=== PATIENT | female | born 1950 | race Caucasian/White ===

== ENCOUNTER → 2016-07-07 | Outpatient (CLI) | payer MEDICARE ==
[~2016-07-07] MED LIST: AMBIEN 10MG TAB10 MG PO; BYSTOLIC PO; BYSTOLIC10 MG PO; CARTIA XT240 MG PO; CARVEDILOL3.125 MG PO; DILTIAZEM 180180 MG OR; FLONASE 50 MCG16 GM; GABAPENTIN100 M1 PO; HUMALOG KW100 UNIT/1 SQ; HUMALOG MIX 75/10 ML SC; HUMALOG100 U/ML SC; IPRATROPIUM BROM3 M2 IH; LASIX 40MG. TAB40 MG PO; LASIX40 MG PO; LEVOTHYROXINE0.05 MG NG; LIPITOR40 MG PO; LISINOPRIL 20MG20 MG PO; LOMOTIL 0.025 M1 TAB PO; NEXIUM40 MG PO; NICOTINE PATCH;21 MG TD; NORCO 325 MG-101 TAB PO; OXYGEN3 IH; PHENERGAN 25MG.25 M1 PO; POTASSIUM CHLO20 ME2 PO; PRAVASTATIN 20M20 MG PO; PREDNISONE 20MG20 MG PO; PROVENTIL0.09 MG/A1 IH; SYMBICORT1 AE1 IH; SYMBICORT1 AER IH; SYNTHROID0.025 MG PO; TOUJEO300 U/ML SC; VICOPROFEN 7.51 TAB PO; XANAX 1MG TABLET1 MG PO; ZOFRAN ODT8 MG PO; ZOLPIDEM 10MG T10 MG PO
[2016-07-07 14:01] LABS: BUN 17 mg/dL (7-18)
[2016-07-07 14:03] LABS: HEMOGLOBIN 10.5 g/dL (12.2-16.2); LYMPH # 1.1 K/mm3 (0.7-4.5); LYMPH % 14.1 % (10-50.0)
[2016-07-07 14:04] LABS: GFR (ESTIMATED) 72 ML/MIN (59-)
== END ==
LOC: CARL-LAB 10:59
PROVIDERS: Internal Medicine Adolescent Medicine
DX: I50.30 Unspecified diastolic (congestive) heart failure (principal); E78.5 Hyperlipidemia, unspecified

== ENCOUNTER 2017-03-14 15:35 | Inpatient (IN) | payer MEDICARE, MEDICAID ==
[~2017-03-14] VITALS: Ht 165.1 cm; Wt 101.0 kg
[2017-03-14 15:35] VITALS: BP 161/80
[~2017-03-14 15:35] MED LIST changes: +ALDACTONE 25MG25 MG PO; +BREO ELLIPTA1 POW IH; +COMPAZINE10 M1 PO; +FOLIC ACID 1MG T1 MG PO; +GABAPENTIN800 MG PO; +METHOTREXATE 22.5 MG PO; +SPIRIVA HA1 PUFF/INH IH; -SYMBICORT1 AE1 IH
--- NOTE | 2017-03-14 15:44 | Emergency Room Report ---
History of Present Illness Time Seen by [id number] Presenting Problem in Triage Pt arrived: Presenting Problem: Onset of symptoms date/time:/ or onset unknown for: Treatment Prior to Arrival: COMMISSIONING ENGINEER Provided by: Sepsis Risk Assessment: Temp: B/P: MAP: Pulse: Resp: Recent fever? Clinical Suspician of Infection? Mental Status: Sepsis Risk: Have you (or family members/close friends) recently traveled outside the [place]? If Yes, where/when: Have you had exposure to infectious disease within the past month? TB? Other? Specify: Patient states that she had an episode of intense SOB this afternoon. She was given a duoneb on arrival and feels better. She has chronically edematous legs. Hx COPD, hospice patient, hx CHF as well. Hospice called ED and stated they had given her Lasix COMMISSIONING ENGINEER. Hospice tech was concerned about facial droop, but patient states she has had this for the last six months and denies any acute neurological changes today. She is DNR. She is alert and cooperative on arrival. 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 Daughter confirms that the patient has had some facial droop in the past. ALLERGIES Coded Allergies: Penicillins (Intermediate, SWELLING, HIVES, ITCHING 07/25/16) ibuprofen (Mild, ITCHING, SWELLING, RASH 07/25/16) Home Medications Active Scripts Furosemide (Lasix 40MG) 40 MG PO BIDL #60 TAB Ref 1 Prov: 10/05/16 Reported Medications Gabapentin (Gabapentin 800MG) 800 MG PO BID Esomeprazole Magnesium (Nexium 40MG Cap) 40 MG PO DAILY #30 CAP DILTIAZEM HCL (Cartia Xt) 240 MG PO BID Fluticasone Propionate (Flonase 50 Mcg Nasal [place]) 2 SPRAY NA BID Atorvastatin Calcium (Atorvastatin) 40 MG PO DAILY Tiotropium [place] (Spiriva) 1 PUFF IH DAILY Insulin Lispro (Humalog Kwikpen) 30 UNIT SQ TID INSULIN GLARGINE,HUM.REC.ANLOG (Toujeo Solostar) 100 UNITS SC DAILY POTASSIUM CHL (Potassium Chloride) 20 MEQ PO BIDP PRN SUPPLEMENT Methotrexate 2.5 MG PO WEEKLY FOLIC ACID (Folic Acid) 1 MG PO DAILY Spironolactone (Aldactone) 25 MG PO DAILY Prochlorperazine Maleate (Compazine) 10 MG PO PRN PRN NAUSEA FLUTICASONE/VILANTEROL (Breo Ellipta 100-25 Mcg INH) 1 PUFF IH DAILY Levothyroxine Sodium (Synthroid 0.025MG) 0.025 MG PO DAILY Alprazolam (Xanax 1MG) 1 MG PO BID ALBUTEROL (Proventil Hfa Inhaler) 2 PUFF IH Q4H Device (Oxygen Concentrator (Portable)) 1 UNIT IH CONSTANT #1 IPRATROPIUM/ALBUTEROL SULFATE (Iprat-Albut 0.5-3(2.5) MG/3 Ml) 3 ML IH QID History Medical History General CAD? No Angina: No GA: No Hypertension? Yes Hyperlipidemia? Yes CHF? Yes DVT? No PE? No COPD? Yes Asthma? Yes Anemia? No GERD? Yes Gastric ulcers? No GI Bleed? No Hernia? No Thyroid Problems? No Hypothyroidism? No CVA? No Seizures? No Diabetes? Yes Insulin Dependent: Yes Insulin Pump: No Home FSBS? Yes Renal Insuffiency? No End Stage Renal Disease? No UTI? No Stones? No BPH? No GB Disease: Yes Nephritic Syndrome? No Asplenia? No Hepatitis? No Sickle Cell Disease? No Arthritis? Yes Migraines? No Cataracts? No Glaucoma? No MRSA? No HIV? No TB? No Anxiety? Yes Depression? No Cancer? Yes Site: CERVICAL More? 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 Immunization Hx DT/Tetanus Unknown Flu Refused Pneumonia Received In Past Surgical Hx Previous Surgery?Y HYSTERECTOMY Cholecystectomy GB REMOVAL Family History Family Hx Diabetes Yes CAD No Hypertension Yes Hyperlipidemia Yes Cancer Yes TB No Social History Smoking Hx Packs/day N/A Alcohol Alcohol: No Review of Systems All Other Systems Reviewed and Negative Respiratory see HPI (oxygen dependent, on Hospice) Psychiatric/Neurological denies see HPI Physical Exam Vital Signs Vital Signs Date Time Temp Pulse Resp B/P Pulse O2 O2 Flow FiO2 Ox Delivery Rate 03/14 1839 95 OXYGEN 03/14 183 98.3 101 20 167/83 95 OXYGEN 03/14 1811 99.1 100 24 161/76 92 4 03/14 1805 99.1 100 24 161/7 92 4 03/14 1756 96 24 157/75 94 15 03/14 1710 40 03/14 1704 94 20 158/78 92 5 03/14 1628 106 20 138/67 94 4 03/14 1535 98.0 107 20 161/80 100 4 General Appearance normal appearance, WD/WN, no apparent distress Eye Exam - bilateral eye normal exam, bilateral eye PERRL Neck normal inspection, non-tender, supple, full range of motion Respiratory Status Yes: trachea midline, chest symmetrical, non tender chest, non productive cough. No: respiratory distress, tender on palpation, use of accessory muscles, pain on inspiration, pain on expiration, productive cough. Lung Sounds bilateral: decreased breath sounds. Cardiovascular normal exam, regular rate/rhythm, no gallop, no JVD, no murmur, no rub, normal peripheral pulses (nonpitting edema BLE neg [place]) Peripheral Pulses Pulses normal Yes Gastrointestinal normal bowel sounds, normal exam, non tender, soft, no organomegaly, no pulsatile mass, no guarding, no rebound Extremities normal range of motion, no calf tenderness, pedal edema Strength 4 Upper Ext (L), 4 Upper Ext (R), 4 Lower Ext (L), 4 Lower Ext (R) Neurologic alert, normal exam, no motor/sensory deficits, oriented x 3 (minor facial droop right) Glascow Coma Scale Glascow Coma Scale Response Value EYE response: 4 Spontaneously 4 MOTOR response: 6 OBEYS 6 VERBAL response: 5 Oriented & Converses 5 Total 15 Skin intact, normal color, warm/dry, pallor Medical Decision Making LABS/Meds/Orders Pt receiving controlled substance in ED? No Results/Orders Laboratory Tests 03/14/17 1700: Urine Color YELLOW, Urine Appearance CLEAR, Urine pH 6.0, Ur Specific [place] 1.025, Urine Protein 2+ H, Urine Ketones NEGATIVE, Urine Blood TRACE-LYSED, Urine Nitrate NEGATIVE, Urine Bilirubin NEGATIVE, Urine Urobilinogen 0.2, Ur Leukocyte Esterase NEGATIVE, Urine RBC NONE, Urine WBC OCC, Ur Squamous Epith Cells OCC, Urine Bacteria NONE, Hyaline Casts 5-10, Urine Glucose NEGATIVE 03/14/17 1645: ABG pH 7.29 L, ABG pCO2 (Temp Corrct 83.6 H, ABG pO2 (Temp Correct 75.5 L, ABG HCO3 39.6 H, ABG Total CO2 42.1 H, ABG O2 Sat (Calculated) 93.5, ABG Base Excess 13.0 H, Junior Test ACCEPTABLE, Blood Gas Comments LEFT RADIAL 03/14/17 1615: Sodium 141, Potassium 3.9, Chloride 97 L, Carbon Dioxide 43 *H, BUN 7, Creatinine 0.9, Estimated Creat Clear 97, Estimated GFR (MDRD) 63, Glucose 194 H, Calcium 8.8, Total Bilirubin 0.3, AST 24, ALT 22, Alkaline Phosphatase 80, Troponin I 0.04, Total Protein 7.3, Albumin 3.2 L, Globulin 4.1 H, Albumin/ Globulin Ratio 0.8 L, WBC 6.3, RBC 3.39 L, Hgb 8.8 L, Hct 29.6 L, MCV 87.5, RDW 17.8 H, Plt Count 229, MPV 7.6, Gran % 79.3, Gran # 5.0, Lymphocytes % 14.3 , Monocytes % 3.7, Eosinophils % 2.4, Basophils % 0.3, Lymphocytes # 0.9, Monocytes # 0.2, Eosinophils # 0.2, Basophils # 0.0, PUBS MCHC 29.7 L, MCH 26.0 L Current Medication Orders Sig/Ghazal Start time Last Medication Dose Route Stop Time Status Admin Methotrexate 2.5 MG WEEKLY 03/21 900 UNVr PO Enoxaparin Sodium 40 MG DAILY 03/15 900 UNV SC Levothyroxine Sodium 0.025 MG DAILY 03/15 900 UNV PO Spironolactone 25 MG DAILY 03/15 900 UNV PO Tiotropium [place] 18 MCG DAILY 03/15 900 UNV IH Furosemide 40 MG BIDL 03/15 700 UNV PO Albuterol/Ipratropium 3 ML QID 03/14 2100 UNV 03/14 INH 1937 Alprazolam 1 MG BID 03/14 2100 UNV PO Diagnostic Test (Pha) 1 EACH W/MEALS&HS 03/14 2100 UNV FS 05/13 2058 Diltiazem HCl 240 MG BID 03/14 2100 UNV PO Fluticasone 2 SPR BID 03/14 2100 UNV Propionate NA Insulin Human [rDNA See Dose W/MEALS&HS 03/14 2100 UNV origin] Insts (1) SC Methylprednisolone 125 MG Q12 03/14 2100 UNV Sodium Succinate IV Ondansetron HCl 4 MG Q6HP PRN 03/14 1800 UNV IV Potassium Chloride 20 MEQ BIDP PRN 03/14 1800 UNV PO Prochlorperazine 10 MG PRN PRN 03/14 1800 UNV Maleate PO Sodium Chloride 10 ML PRN PRN 03/14 1800 UNV IV Furosemide 40 MG ONCE ONE 03/14 1700 DC 03/14 IV 03/14 1701 1702 Albuterol/Ipratropium 3 ML ONCE ONE 03/14 1545 DC 03/14 INH 03/14 1546 1540 Methylprednisolone 125 MG ONCE ONE 03/14 1545 DC 03/14 Sodium Succinate IV 03/14 1546 1632 Sodium Chloride 10 ML PRN PRN 03/14 1545 AC IV 03/15 1541 Methylprednisolone 0 .STK-MED ONE 03/14 1544 DC Sodium Succinate .ROUTE Dose Instructions: (1)Insulin Human [rDNA origin]: SEE ADMIN CRITERIA FOR LOW INTENSITY SS Orders Procedure Date/time Status DIET-2000 CALORIE ADA 03/15 B Active CBC WITH AUTO DIFF 03/15 06 Active BASIC METABOLIC PROFILE 03/15 06 Active DIET-NOTHING BY MOUTH 03/14 D Complete ADMITTED PT IS ACTUALLY IN BED 03/14 1837 Active RT BIPAP, Initial Setup/Change 03/14 1745 Active RT BIPAP, Monitor/Maintain 03/14 1745 Active URINARY CATHETER INSERT 03/14 1729 Active URINALYSIS/COMPLETE 03/14 1729 Complete Decision to admit 03/14 1708 Active RESP THERAPY REQUEST (GENERAL) 03/14 1652 Active 12 LEAD EKG-BESSON (INITIAL) 03/14 1543 Active ELECTROCARDIOGRAM REQUEST 03/14 1543 Active RT REQUEST DUONEB 03/14 1543 Active ARTERIAL BLOOD GAS REQUEST 03/14 1543 Active IV SALINE LOCK 03/14 1543 Active CULTURE, BLOOD 03/14 1543 Active TROPONIN I 03/14 1543 Complete CBC WITH AUTO DIFF 03/14 1543 Complete CHEM 12 PROFILE 03/[address] HEAD REQ 03/14 1539 Complete ADMIT PATIENT 03/14 UNK Active RESP THERAPY REQUEST (GENERAL) 03/14 UNK Active PULSE OXIMETRY REQUEST 03/14 UNK Active RT REQUEST FOR SPIRIVA INH 03/14 UNK Active RT REQUEST DUONEB 03/14 UNK Active ARTERIAL BLOOD GAS REQUEST 03/14 UNK Active VITAL SIGNS 03/14 UNK Active IV SALINE LOCK 03/14 UNK Active RECORD I & O 03/14 UNK Active CODE STATUS 03/14 UNK Active PATIENT ACTIVITY ORDER 03/14 UNK Active CM/EKG CM/EKG EKG rate, NSR, rhythm, no evid. of ischemic chgs, no ectopy, normal QRS, normal TN, normal EKG (Stach 105) XRAY/CT/US XRAY/CT/US XRAY chest XR interpretation by reviewed by me Xray Results abnormal, mild cephalization; poorly penetrated, but seems to have a left sided effusion/blunting CT head CT interpretation by reviewed by me (report reviewed) Time results known: 1625 CT Results normal/NAD Consult MD Physician Consult Consult/PCP d/w PCP Dr. Maki: antibiotics not indicated; admit on BiPap Time Called 1708 Reason Admission Progress ED Progress Notes Date 03/14/17 Time 1708 Comment Patient given Lasix, Solumedrol, placed on Bipap for increasing somnolence with elevated PC02 noted; PCP paged for admission. Departure Departure Time of Disposition 1719 Disposition Still a Patient Clinical Impression Primary Impression: Respiratory distress Condition STABLE ED Critical Care Critical Care Yes (resp distress) Time spent < 30 min Vital system(s) involved: resp distress I was present at bedside for Coordinating pt's care, During my initial exam, Reviewing lab results, Reviewing old records, Discussing pt condition, For re- examinations, Examining radiographs at 2003
--- OUTSIDE RECORDS SUMMARY | 2017-03-14 16:07 | External Medical Summary Rpt ---
Author Author [facility] Organization [facility] Address Unknown Phone Unavailable Care Team Providers Care Wage Analyst Name Role Phone PHY, UNKNOWN PCP Unavailable Encounter [facility] [id number] Date(s): 03/06/16 - 03/06/17 [facility] [address] [place] [address]- [phone] Discharge Disposition: OP Self Care or Home Attending Physician: MICKEY DAVIES II, MD-ANS Admitting Physician: MICKEY DAVIES II, MD-ANS Referring Physician: MICKEY DAVIES II, MD-ANS Reason for Visit PM Vital Signs No data available for this section Problem List No data available for this section Allergies, Adverse Reactions, Alerts No data available for this section Medications No data available for this section Results No data available for this section Immunizations No data available for this section Procedures No data available for this section Social History No data available for this section Assessment and Plan No data available for this section Hospital Discharge Instructions No data available for this section
--- OUTSIDE RECORDS SUMMARY | 2017-03-14 16:07 | External Medical Summary Rpt ---
Author Author [facility] Organization [facility] Address Unknown Phone Unavailable Care Team Providers Care Digital Operations Analyst Name Role Phone PHY, UNKNOWN PCP Unavailable Encounter [facility] [id number] Date(s): 03/06/16 - 03/06/17 [facility] [address] [place] [address]- Discharge Disposition: OP Self Care or Home [...]
--- NOTE | 2017-03-14 16:11 | RADIOLOGY REPORT PS360 ---
CT HEAD W/O CONTRAST HISTORY: RT SIDE FACIAL DROOP ORDERING PHYSICIAN: Yohana Hand MD PATIENT AGE: 66 years COMPARISON: 10/02/2016 TECHNIQUE: Helical images obtained due to patient's inability to remain still without contrast. Brain and bone windows reviewed. FINDINGS: No midline shift, mass effect, intracranial hemorrhage, hydrocephalus, or extra-axial fluid collection is evident. The calvarium has an unremarkable appearance. Mastoid sinuses are opacified bilaterally. The visualized paranasal sinuses are unremarkable. IMPRESSION: 1. No acute intracranial findings. 2. Bilateral mastoid sinus opacification. 3. There is no evidence of intracranial hemorrhage, focal mass, or acute territorial infarction. A negative CT does not exclude an acute CVA. A follow-up head CT or MRI is recommended if neurological symptoms persist .
--- OUTSIDE RECORDS SUMMARY | 2017-03-14 16:11 | External Medical Summary Rpt | CCD ---
Author Author , RAE MCBRIDE Address Unknown Phone Care Team Providers Care Test Case Developer Name Role Phone CHRIS BARTH, Unavailable Unavailable Conner Healy Unavailable Unavailable Adielmtcassandra [facility] Purpose Continuity of Care Document - 12-07-2011 through 2016 Problems Code Diagnosis DOS Provider Status 90391287 Active [facility] 562.01 Diverticuli [facility] [id number] Chronic [facility] E87.2 ACIDOSIS M54.5 LOW BACK PAIN N17.9 ACUTE KIDNEY FAILURE, UNSPECIFIED R06.89 OTHER ABNORMALITI ES OF BREATHING R41.82 ALTERED MENTAL STATUS, UNSPECIFIED R47.81 SLURRED SPEECH Allergies, Adverse Reactions, Alerts Type Drug Allergy Adverse Reaction to Substance Substance Reaction Severity Penicillin SWELLING, HIVES, Intermediate ITCHING Naproxen ITCHING, HIVES Mild Medications Na ND Rx Da Fi Fi Am Da Di Ph RX Ph St me C No te ll ll ou ys ag ar # ys at rm s nt no ma ic us Or Da si cy ia de te s n re d CA 51 01 0 No RV 07 -3 ED 90 0- Lo IL 93 20 ng OL 12 13 er 0 12 Ac .5 ti ve MG TA BL ET MO 65 01 1 No 64 -2 WV 90 9- Lo EP 20 20 ng 17 13 er PO 5 WD Ac ER ti ve PA CK ET WV 00 01 2 No OT 00 -2 ON 80 9- Lo IX 84 20 ng [address] 9 Ac 40 ti ve MG TA BL ET FU 00 01 0 No RO 40 -2 SE 96 8- Lo SD 10 20 ng DE 20 13 er 4 40 Ac ti MG ve /4 ML AL WV 00 01 0 No OT 00 -2 ON 80 8- Lo IX 84 20 ng [address] 9 Ac 40 ti ve MG TA BL ET 63 01 5 No PI 73 -2 RI 90 6- Lo N 43 20 ng 81 40 13 er 1 MG Ac ti CH ve EW AB LE TA BL ET Me 00 01 0 No th 00 -2 yl 90 6- Lo pr 19 20 ng ed 00 13 er ni 9 so Ac lo ti ne ve So d Matta cc in a Me 00 01 5 No th 00 -2 yl 90 6- Lo pr 19 20 ng ed 00 13 er ni 9 so Ac lo ti ne ve So d Matta cc in a IN 00 01 5 No VA 00 -2 NZ 63 6- Lo 1 84 20 ng 57 13 er GM 1 Ac AD ti D- ve VA NT AG E AL So 00 01 5 No d 07 -2 Ch 47 6- Lo lo 10 20 ng ri 11 13 er de 3 Ac 0. ti 9% ve 50 ML Ad v SO 00 01 6 No DI 40 -2 UM 97 5- Lo 98 20 ng CH 30 13 er LO 9 RI Ac DE ti ve 0. 9% SO SEGUNDO TI ON Ni 00 01 6 No co 06 -2 ti 70 5- Lo ne 21 20 ng 40 13 er 14 7 MG Ac /2 ti 4H ve R Pa tc h LO 00 01 6 No VE 07 -2 NO 50 5- Lo X 62 20 ng 40 04 13 er 1 MG Ac /0 ti .4 ve ML SY RI NG E MA 00 01 6 No PA 90 -2 P 41 5- Lo 32 98 20 ng 5 26 13 er MG 1 Ac TA ti BL ve ET MO 00 01 6 No RP 64 -2 HI 16 5- Lo NE 07 20 ng 02 13 er IN 5A J Ac 2M ti G/ ve 0. 2M L WV 00 01 6 No OM 64 -2 ET 11 5- Lo TURNER 49 20 ng ZI 53 13 er NE 5 Ac 25 ti ve MG /M L AM PU L CA 51 01 6 No RV 07 -2 ED 90 5- Lo IL 93 20 ng OL 12 13 er 0 12 Ac .5 ti ve MG TA BL ET Is 58 01 6 No os 17 -2 or 70 5- Lo bi 22 20 ng de 21 13 er 1 Mo Ac no ti ni ve tr at e 30 MG Ta Al 68 01 6 No pr 08 -2 az 40 5- Lo ol 02 20 ng am 00 13 er 1 1M Ac G ti Ta ve bl et ZO 51 01 6 No LP 07 -2 ID 90 5- Lo EM 72 20 ng 52 13 er TA 0 RT Ac RA ti TE ve 10 MG TA BL ET IP 00 01 6 No RA 48 -2 T- 70 5- Lo AL 20 20 ng BU 10 13 er T 1 0. Ac 5- ti 3( ve 2. 5) MG /3 ML FS 01 6 No -2 BL 5- Lo OO 20 ng D 13 er MATTA GA Ac R ti ve HU 00 01 6 No MA 00 -2 LO 27 5- Lo G 51 20 ng 10 01 13 er 0 7 UN Ac IT ti S/ ve ML AL RA 63 01 0 No D- 80 -2 SA 70 5- Lo LI 10 20 ng NE 07 13 er 5A FL Ac US ti H ve 10 ML SY RI NG E ON 00 01 6 No DA 64 -2 NS 16 5- Lo ET 08 20 ng RO 02 13 er N 5 HC Ac L ti 4 ve MG /2 ML AL Vital Signs 05-23-2012 10:00 Name Value Interpretat Reference Comment ion Range Body 98.4 [degF] Temperature BP 72 mm[Hg] Diastolic BP Systolic 158 mm[Hg] Heart 70 /min Rate/Pulse Respiratory 16 /min Rate 05-23-2012 08:00 Name Value Interpretat Reference Comment ion Range O2% 94 % 05-22-2012 08:48 Name Value Interpretat Reference Comment ion Range Weight 91.372 kg Measured 05-17-2012 12:00 Name Value Interpretat Reference Comment ion Range O2% 94 % Respiratory 20 /min Rate 05-17-2012 11:41 Name Value Interpretat Reference Comment ion Range Body 97.6 [degF] Temperature BP 86 mm[Hg] Diastolic BP Systolic 137 mm[Hg] Heart 93 /min Rate/Pulse Height 154.94 cm Weight 199 [lb_av] Measured Results Labs Lab Lab Date Result Refere Interp Status Commen Order Detail nces retati t Range on Differential panel, method unspecified - (10-05-2016 06:00) Hypochr 1+ complet omia 017 ed [Presen 06:00 ce] in Blood LYMPH 4 % 10% - Low complet 017 50% ed 06:00 Platele NORMAL complet ts 017 ed [Presen 06:00 ce] in Blood by Light microsc opy Urinalysis dipstick W Reflex Microscopic panel in Urine (10-02-2016 18:00) Amorpho 1+ NONE complet us 017 ed sedimen 18:00 t [Presen ce] in Urine sedimen t by Light microsc opy Bacteri TRACE O complet a 017 ed [Presen 18:00 ce] in Urine sedimen t by Light microsc opy Erythro OCC 0 complet cytes 017 ed [Presen 18:00 ce] in Urine sedimen t by Light microsc opy Epithel 3-5 0#/hp complet ial 017 f - ed cells.s 18:00 5#/hp quamous f [Presen ce] in Urine sedimen t by Microsc opy high power field Urinalysis dipstick W Reflex Microscopic panel in Urine (10-02-2016 18:00) Appeara CLEAR CLEAR complet nce of 017 ed Urine 18:00 Bilirub NEGATIV NEG complet in 017 E ed [Presen 18:00 ce] in Urine by Test strip Erythro TRACE-L NEG complet cytes 017 YSED ed [Presen 18:00 ce] in Urine Color YELLOW YELLOW complet of 017 ed Urine 18:00 Ketones NEGATIV NEG complet 017 E ed [Presen 18:00 ce] in Urine by Automat ed test strip Mucus NEGATIV NEG complet [Presen 017 E ed ce] in 18:00 Urine sedimen t by Light microsc opy Nitrite NEGATIV NEG complet 017 E ed [Presen 18:00 ce] in Urine by Test strip Urobili 0.2 NEG complet nogen 017 ed [Presen 18:00 ce] in Urine by Test strip Gas panel in Arterial blood (10-02-2016 17:27) Arteria ACCEPTA complet l 017 BLE ed patency 17:27 Wrist artery --pre arteria l punctur e HLA-B27 [Presence] by Probe & target amplification method (09-08-2016 10:40) HLA-B27 Negativ . complet 017 e ed [Presen 10:40 ce] by Probe & target amplifi cation method Hemoglobin A1c in Blood (09-08-2016 10:40) Hemoglo 9.1 % 0.0% High complet bin A1c 017 - ed in 10:40 7.0% Blood Glucose BldC Glucomtr-mCnc (05-23-2012 06:43) Glucose 206 70-110 complet BldC 013 mg/dl ed Glucomt 06:43 r-mCnc Glucose BldC Glucomtr-mCnc (05-22-2012 20:30) Glucose 190 70-110 complet BldC 013 mg/dl ed Glucomt 20:30 r-mCnc Glucose BldC Glucomtr-[facility] (05-22-2012 16:32) Glucose 326 70-110 High complet BldC 013 mg/dl alert ed Glucomt 16:32 r-mCnc Glucose BldC [facility]comtr-[facility] (05-22-2012 11:43) Glucose 152 70-110 complet BldC 013 mg/dl ed Glucomt 11:43 r-mCnc Glucose BldC [facility]comtr-[facility] (05-22-2012 06:37) Glucose 143 70-110 complet BldC 013 mg/dl ed Glucomt 06:37 r-mCnc Glucose BldC [facility]comtr-[facility] (05-21-2012 20:28) Glucose 201 70-110 complet BldC 013 mg/dl ed Glucomt 20:28 r-mCnc Glucose BldC [facility]tr-[facility] (05-21-2012 16:53) Glucose 184 70-110 complet BldC 013 mg/dl ed Glucomt 16:53 r-mCnc C dif Tox A+B Stl Ql (05-21-2012 15:00) C dif NOT NOT complet Tox A+B 013 DETECTE DETECTE ed Stl Ql 15:00 D Glucose BldC [facility]comtr-[facility] (05-21-2012 11:46) Glucose 164 70-110 complet BldC 013 mg/dl ed Glucomt 11:46 r-mCnc Glucose BldC [facility]comtr-[facility] (05-21-2012 06:48) Glucose 01-29-2 178 70-110 complet BldC 013 mg/dl ed Glucomt 06:48 r-[facility] C dif Tox A+B Stl Ql (05-21-2012 00:15) C dif NOT NOT complet Tox A+B 013 DETECTE DETECTE ed Stl Ql 00:15 D Glucose BldC Glucomtr-mCnc (05-20-2012 21:21) Glucose 260 70-110 complet BldC 013 mg/dl ed Glucomt 21:21 r-[facility] Glucose BldC Glucomtr-[facility] (05-20-2012 17:01) Glucose 114 70-110 complet BldC 013 mg/dl ed Glucomt 17:01 r-[facility] C-REACTIVE PROTEIN (05-20-2012 13:30) C-REACT Less 0.0-0.9 complet AILIN 013 than ed PROTEIN 13:30 0.2 MG/DL IgA Ser-mCnc (05-20-2012 13:27) IgA 241 81-463 complet Ser-mCn 013 mg/dL ed c 13:27 tTG IgA Ser-aCnc (05-20-2012 13:14) tTG IgA Less () complet 013 than 1 ed Ser-aCn 13:14 U/mL c Glucose dC Glucomtr-[facility] (05-20-2012 12:01) Glucose 314 70-110 High complet BldC 013 mg/dl alert ed Glucomt 12:01 r-[facility] Glucose dC Glucomtr-[facility] (05-20-2012 06:39) Glucose 167 70-110 complet BldC 013 mg/dl ed Glucomt 06:39 r-[facility] COMPREHENSIVE METABOLIC PANEL (05-20-2012 06:20) Glucose 147 74-106 complet 013 mg/dL ed Bld-mCn 06:20 c BUN 33 7-18 complet Bld-mCn 013 mg/dL ed c 06:20 Creat 1.5 0.6-1.0 complet SerPl-m 013 mg/dL ed Cnc 06:20 ESTIMAT 57 50-200 complet ED 013 ML/MIN ed CREATIN 06:20 INE CLEARAN CE GFR 35 59- complet (ESTIMA 013 ML/MIN ed BRUCE) 06:20 Sodium 141 136-145 complet SerPl-s 013 mmoL/L ed Cnc 06:20 Potassi 3.4 3.5-5.1 complet um 013 mmoL/L ed SerPl-s 06:20 Cnc Chlorid 108 98-107 complet e 013 mmoL/L ed SerPl-s 06:20 Cnc CO2 25 21.0-32 complet SerPl-s 013 mmoL/L .0 ed Cnc 06:20 Calcium 7.7 8.5-10. complet 013 mg/dL 1 ed SerPl-m 06:20 Cnc Prot 6.3 6.4-8.2 complet SerPl-m 013 gm/dL ed Cnc 06:20 Albumin 3.0 3.4-5.0 complet 013 gm/dL ed SerPl-m 06:20 Cnc Globuli 3.3 1.3-3.2 complet n 013 gm/dL ed Ser-mCn 06:20 c Albumin 0.9 UNK 1.1-1.8 complet /Glob 013 ed SerPl-m 06:20 Rto Bilirub 0.3 0.2-1.0 complet 013 mg/dL ed SerPl-m 06:20 Cnc AST 19 U/L 15-37 complet SerPl-c 013 ed Cnc 06:20 ALT 37 U/L 30-65 complet SerPl-c 013 ed Cnc 06:20 ALP 72 U/L 50-136 complet SerPl-c 013 ed Cnc 06:20 Amylase SerPl-cCnc (05-20-2012 06:20) Amylase 48 U/L 25-115 complet 013 ed SerPl-c 06:20 Cnc LIPASE (05-20-2012 06:20) LIPASE 210 U/L 73-393 complet 013 ed 06:20 CBC with AUTO DIFF (05-20-2012 06:20) WBC # 05-20- 7.6 4.8-10. complet Bld 013 K/MM3 8 ed Auto 06:20 RBC # 05-20-2 4.28 4.2-5.4 complet Bld 013 M/mm3 ed Auto 06:20 Hgb 2 12.7 12.2-16 complet Bld-mCn 013 g/dL .2 ed c 06:20 Hct Fr 38.0 % 37.0-47 complet Bld 013 .0 ed 06:20 MCV RBC 88.8 fl 82.2-97 complet 013 .8 ed 06:20 MCH RBC 29.7 pg 27-31.2 complet Qn 013 ed Auto 06:20 MEAN 33.4 31.8-35 complet CORPUSC 013 g/dl .4 ed ULAR 06:20 HGB CONC RDW RBC 14.1 % 11.5-17 complet Auto 013 .5 ed 06:20 Platele 212 142-424 complet t Bld 013 K/mm3 ed Ql 06:20 Manual MEAN 8.6 fl 7.4-10. complet PLATELE 013 4 ed T 06:20 VOLUME Granulo 86.6 % 37.0-80 complet cytes 013 .0 ed Fr Bld 06:20 Auto LYMPH % 05-20-2 10.6 % 10-50.0 complet 013 ed 06:20 Monocyt 05-20-2 2.6 % 1.7-9.3 complet es Fr 013 ed Bld 06:20 Auto Eosinop 05-20-2 0.3 % 0.1-12. complet hil Fr 013 0 ed Bld 06:20 Auto Basophi 05-20-2 0.0 % 0.1-2.0 complet ls Fr 013 ed Bld 06:20 Auto Granulo 05-20-2 6.6 1.8-7.8 complet cytes # 013 K/mm3 ed Bld 06:20 Auto Lymphoc 05-20-2 0.8 0.7-4.5 complet ytes Fr 013 K/mm3 ed Bld 06:20 Auto Monocyt 05-20-2 0.2 0.1-1.0 complet es # 013 K/mm3 ed Bld 06:20 Auto Eosinop 05-20-2 0.0 0.0-0.4 complet hil # 013 K/mm3 ed Bld 06:20 Auto Basophi 0.0 0-0.2 complet ls # 013 K/MM3 ed Bld 06:20 Auto Glucose BldC Glucomtr-mCnc (05-19-2012 21:20) Glucose 187 70-110 complet BldC 013 mg/dl ed Glucomt 21:20 r-mCnc Glucose BldC Glucomtr-mCnc (05-19-2012 16:56) Glucose 255 70-110 complet BldC 013 mg/dl ed Glucomt 16:56 r-mCnc Glucose BldC Glucomtr-mCnc (05-19-2012 12:00) Glucose 156 70-110 complet BldC 013 mg/dl ed Glucomt 12:00 r-mCnc Glucose BldC Glucomtr-mCnc (05-19-2012 06:59) Glucose 154 70-110 complet BldC 013 mg/dl ed Glucomt 06:59 r-mCnc Glucose BldC Glucomtr-mCnc (05-18-2012 20:14) Glucose 175 70-110 complet BldC 013 mg/dl ed Glucomt 20:14 r-mCnc Glucose BldC Glucomtr-mCnc (05-18-2012 17:06) Glucose 149 70-110 complet BldC 013 mg/dl ed Glucomt 17:06 r-mCnc Glucose BldC Glucomtr-mCnc (05-18-2012 11:45) Glucose 159 70-110 complet BldC 013 mg/dl ed Glucomt 11:45 r-mCnc Glucose BldC Glucomtr-mCnc (05-18-2012 06:43) Glucose 116 70-110 complet BldC 013 mg/dl ed Glucomt 06:43 r-mCnc CBC with AUTO DIFF (05-18-2012 05:35) WBC # 9.6 4.8-10. complet Bld 013 K/MM3 8 ed Auto 05:35 RBC # 4.81 4.2-5.4 complet Bld 013 M/mm3 ed Auto 05:35 Hgb 14.4 12.2-16 complet Bld-mCn 013 g/dL .2 ed c 05:35 Hct Fr 43.1 % 37.0-47 complet Bld 013 .0 ed 05:35 MCV RBC 89.6 fl 82.2-97 complet 013 .8 ed 05:35 MCH RBC 29.8 pg 27-31.2 complet Qn 013 ed Auto 05:35 MEAN 33.3 31.8-35 complet CORPUSC 013 g/dl .4 ed ULAR 05:35 HGB CONC RDW RBC 14.4 % 11.5-17 complet Auto 013 .5 ed 05:35 Platele 261 142-424 complet t Bld 013 K/mm3 ed Ql 05:35 Manual MEAN 7.5 fl 7.4-10. complet PLATELE 013 4 ed T 05:35 VOLUME Granulo 65.4 % 37.0-80 complet cytes 013 .0 ed Fr Bld 05:35 Auto LYMPH % 05-18-2 28.3 % 10-50.0 complet 013 ed 05:35 Monocyt 05-18-2 5.0 % 1.7-9.3 complet es Fr 013 ed Bld 05:35 Auto Eosinop 05-18-2 0.8 % 0.1-12. complet hil Fr 013 0 ed Bld 05:35 Auto Basophi 05-18-2 0.5 % 0.1-2.0 complet ls Fr 013 ed Bld 05:35 Auto Granulo 05-18-2 6.3 1.8-7.8 complet cytes # 013 K/mm3 ed Bld 05:35 Auto Lymphoc 05-18-2 2.7 0.7-4.5 complet ytes Fr 013 K/mm3 ed Bld 05:35 Auto Monocyt --2 0.5 0.1-1.0 complet es # 013 K/mm3 ed Bld 05:35 Auto Eosinop 05-18-2 0.1 0.0-0.4 complet hil # 013 K/mm3 ed Bld 05:35 Auto Basophi 05-18-2 0.1 0-0.2 complet ls # 013 K/MM3 ed Bld 05:35 Auto BASIC METABOLIC PANEL (05-18-2012 05:30) Glucose 95 74-106 complet 013 mg/dL ed Bld-mCn 05:30 c BUN 52 7-18 complet Bld-mCn 013 mg/dL ed c 05:30 Creat 1.8 0.6-1.0 complet SerPl-m 013 mg/dL ed Cnc 05:30 ESTIMAT 47 50-200 complet ED 013 ML/MIN ed CREATIN 05:30 INE CLEARAN CE GFR 29 59- complet (ESTIMA 013 ML/MIN ed BRUCE) 05:30 Sodium 143 136-145 complet SerPl-s 013 mmoL/L ed Cnc 05:30 Potassi 3.7 3.5-5.1 complet um 013 mmoL/L ed SerPl-s 05:30 Cnc Chlorid 106 98-107 complet e 013 mmoL/L ed SerPl-s 05:30 Cnc CO2 27 21.0-32 complet SerPl-s 013 mmoL/L .0 ed Cnc 05:30 Calcium 8.0 8.5-10. complet 013 mg/dL 1 ed SerPl-m 05:30 [facility] Glucose [facility]com-[facility] (05-17-2012 20:33) Glucose 112 70-110 complet BldC 013 mg/dl ed [facility] 20:[facility] (05-17-2012 17:02) Glucose 120 70-110 complet BldC 013 mg/dl ed Glucomt 17:02 r-[facility] URINALYSIS/COMPLETE (05-17-2012 15:57) URINE YELLOW YELLOW complet COLOR 013 ed 15:57 URINE SL CLEAR complet APPEARA 013 CLOUDY ed NCE 15:57 URINE NEGATIV NEG complet GLUCOSE 013 E ed - 15:57 DIPSTIC K URINE 1+ NEG complet BILIRUB 013 ed IN - 15:57 DIPSTIC K URINE NEGATIV NEG complet KETONE 013 E mg/dL ed 15:57 URINE Greater 1.005-1 complet SPECIFI 013 than .030 ed C 15:57 or GRAVITY equal to 1.030 URINE 2+ NEG complet BLOOD 013 ed 15:57 URINE 5.0 UNK 5.0-8.5 complet PH 013 ed 15:57 URINE 2+ NEG complet PROTEIN 013 mg/dL ed - 15:57 DIPSTIC K URINE 0.2 NEG complet UROBILI 013 E.U./dL ed NOGEN - 15:57 DIPSTIC K URINE NEGATIV NEG complet NITRATE 013 E ed - 15:57 DIPSTIC K URINE NEGATIV NEG complet LEUK 013 E ed ESTERAS 15:57 E URINE 5-10 0 complet RBC 013 rbc/hpf ed 15:57 URINE 3-5 O complet WBC 013 wbc/hpf ed 15:57 URINE 3-5 0-5 complet SQUAMOU 013 #/hpf ed S CELLS 15:57 Glucose BldC Glucomtr-[facility] (05-17-2012 12:32) Glucose 188 70-110 complet BldC 013 mg/dl ed Glucomt 12:32 r-[facility] COMPREHENSIVE METABOLIC PANEL (05-17-2012 12:00) Glucose 137 74-106 complet 013 mg/dL ed Bld-mCn 12:00 c BUN 56 7-18 complet Bld-mCn 013 mg/dL ed c 12:00 Creat 2.3 0.6-1.0 complet SerPl-m 013 mg/dL ed Cnc 12:00 ESTIMAT 37 50-200 complet ED 013 ML/MIN ed CREATIN 12:00 INE CLEARAN CE GFR 22 59- complet (ESTIMA 013 ML/MIN ed BRUCE) 12:00 Sodium 139 136-145 complet SerPl-s 013 mmoL/L ed Cnc 12:00 Potassi 3.9 3.5-5.1 complet um 013 mmoL/L ed SerPl-s 12:00 Cnc Chlorid 102 98-107 complet e 013 mmoL/L ed SerPl-s 12:00 Cnc CO2 26 21.0-32 complet SerPl-s 013 mmoL/L .0 ed Cnc 12:00 Calcium 9.0 8.5-10. complet 013 mg/dL 1 ed SerPl-m 12:00 Cnc Prot 8.1 6.4-8.2 complet SerPl-m 013 gm/dL ed Cnc 12:00 Albumin 05-17-2 4.2 3.4-5.0 complet 013 gm/dL ed SerPl-m 12:00 Cnc Globuli 3.9 1.3-3.2 complet n 013 gm/dL ed Ser-mCn 12:00 c Albumin 1.1 UNK 1.1-1.8 complet /Glob 013 ed SerPl-m 12:00 Rto Bilirub 0.6 0.2-1.0 complet 013 mg/dL ed SerPl-m 12:00 Cnc AST 26 U/L 15-37 complet SerPl-c 013 ed Cnc 12:00 ALT 30 U/L 30-65 complet SerPl-c 013 ed Cnc 12:00 ALP 77 U/L 50-136 complet SerPl-c 013 ed Cnc 12:00 Amylase SerPl-cCnc (05-17-2012 12:00) Amylase 64 U/L 25-115 complet 013 ed SerPl-c 12:00 Cnc LIPASE (05-17-2012 12:00) LIPASE 570 U/L 73-393 complet 013 ed 12:00 CBC with AUTO DIFF (05-17-2012 12:00) WBC # 05-17- 15.2 4.8-10. complet Bld 013 K/MM3 8 ed Auto 12:00 RBC # 05-17-2 5.54 4.2-5.4 complet Bld 013 M/mm3 ed Auto 12:00 Hgb 16.4 12.2-16 complet Bld-mCn 013 g/dL .2 ed c 12:00 Hct Fr 48.8 % 37.0-47 complet Bld 013 .0 ed 12:00 MCV RBC 88.1 fl 82.2-97 complet 013 .8 ed 12:00 MCH RBC 29.7 pg 27-31.2 complet Qn 013 ed Auto 12:00 MEAN 33.7 31.8-35 complet CORPUSC 013 g/dl .4 ed ULAR 12:00 HGB CONC RDW RBC 14.5 % 11.5-17 complet Auto 013 .5 ed 12:00 Platele 386 142-424 complet t Bld 013 K/mm3 ed Ql 12:00 Manual MEAN 7.6 fl 7.4-10. complet PLATELE 013 4 ed T 12:00 VOLUME Granulo 75.9 % 37.0-80 complet cytes 013 .0 ed Fr Bld 12:00 Auto LYMPH % 19.1 % 10-50.0 complet 013 ed 12:00 Monocyt 4.6 % 1.7-9.3 complet es Fr 013 ed Bld 12:00 Auto Eosinop 05-17-2 0.3 % 0.1-12. complet hil Fr 013 0 ed Bld 12:00 Auto Basophi 05-17- 0.1 % 0.1-2.0 complet ls Fr 013 ed Bld 12:00 Auto Granulo 2 11.5 1.8-7.8 complet cytes # 013 K/mm3 ed Bld 12:00 Auto Lymphoc 05-17- 2.9 0.7-4.5 complet ytes Fr 013 K/mm3 ed Bld 12:00 Auto Monocyt 05-17-2 0.7 0.1-1.0 complet es # 013 K/mm3 ed Bld 12:00 Auto Eosinop 05-17-2 0.0 0.0-0.4 complet hil # 013 K/mm3 ed Bld 12:00 Auto Basophi 05-17-2 0.0 0-0.2 complet ls # 013 K/MM3 ed Bld 12:00 Auto H. PYLORI IGG ANTIBODY (05-17-2012 12:00) H. NEGATIV complet PYLORI 013 E ed IGG 12:[place] [id number] (12-18-2011 14:10) _TC complet 012 Level ed 14:10 IV - Surgica l Patholo gy, Gross and Microsc opic Exam_ COMMENT TRANSVE complet 012 RSE ed 14:10 COLON AVM CBC W DIFF AUTOMATED (12-12-2011 13:48) Leukocy 9.0 4.60 - complet sinan 012 K/uL 10.20 ed [#/volu 13:48 me] in Blood by Automat ed count Erythro 4.51 4.04 - complet cytes 012 M/uL 6.13 ed [#/volu 13:48 me] in Blood by Automat ed count Hemoglo 13.2 12.20 - complet bin 012 g/dL 18.10 ed [Mass/v 13:48 olume] in Blood Hematoc 40 % 37.70 - complet rit 012 53.70 ed [Volume 13:48 Fractio n] of Blood by Automat ed count Erythro 89.1 fL 80.0 - complet cyte 012 97.0 ed mean 13:48 corpusc ular volume [Entiti c volume] by Automat ed count Erythro 29.3 pg 27.0 - complet cyte 012 31.20 ed mean 13:48 corpusc ular hemoglo bin [Entiti c mass] by Automat ed count Erythro 32.8 31.80 - complet cyte 012 g/dL 35.40 ed mean 13:48 corpusc ular hemoglo bin concent ration [Mass/v olume] by Automat ed count Erythro 13.8 % 11.60 - complet cyte 012 14.80 ed distrib 13:48 ution width [Ratio] by Automat ed count Platele 256 142 - complet ts 012 K/uL 424 ed [#/volu 13:48 me] in Blood by Automat ed count Lymphoc 23.2 % 10.0 - complet ytes/10 012 50.0 ed 0 13:48 leukocy sinan in Blood by Automat ed count Monocyt 4.7 % 0.0 - complet es/100 012 12.0 ed leukocy 13:48 sinan in Blood by Automat ed count Neutrop 69.9 % 37.0 - complet hils.ba 012 80.0 ed nd 13:48 form/10 0 leukocy sinan in Blood by Manual count Eosinop 1.50 % 0.00 - complet hils/10 012 7.00 ed 0 13:48 leukocy sinan in Blood by Automat ed count Basophi 0.70 % 0.00 - complet ls/100 012 2.50 ed leukocy 13:48 sinan in Blood by Automat ed count Lymphoc 2.08 0.60 - complet ytes/10 012 K/uL 3.40 ed 0 13:48 leukocy sinan in Blood by Automat ed count Monocyt 0.42 0.00 - complet es/100 012 K/uL 0.90 ed leukocy 13:48 sinan in Blood by Automat ed count Neutrop 6.26 2.00 - complet hils.ba 012 K/uL 6.90 ed nd 13:48 form/10 0 leukocy siann in Blood by Manual count Eosinop 0.13 0.00 - complet hils/10 012 K/uL 0.70 ed 0 13:48 leukocy sinan in Blood by Automat ed count Basophi 0.06 0.00 - complet ls/100 012 K/uL 0.20 ed leukocy 13:48 sinan in Blood by Automat ed count Manual NOT complet Diff 012 INDICAT ed 13:48 ED Basic metabolic 2000 panel in Serum or Plasma (12-12-2011 13:48) Sodium 141 136 - complet [Moles/ 012 mmol/L 145 ed volume] 13:48 in Serum or Plasma Potassi 3.9 3.50 - complet um 012 mmol/L 5.10 ed [Moles/ 13:48 volume] in Serum or Plasma Chlorid 106 98 - complet e 012 mmol/L 107 ed [Moles/ 13:48 volume] in Serum or Plasma TOTAL 32 21 - 32 complet CO2 012 mmol/L ed 13:48 ANION 7 5 - 15 complet GAP 012 mmol/L ed 13:48 Glucose 115 70 - complet 012 mg/dl 120 ed [Mass/v 13:48 olume] in Serum or Plasma Urea 15 7 - 18 complet nitroge 012 mg/dl ed n 13:48 [Mass/v olume] in Serum or Plasma Creatin 1.0 0.60 - complet ine 012 mg/dl 1.30 ed [Mass/v 13:48 olume] in Serum or Plasma AGE [age] yrs complet 012 ed 13:48 GFR 60 complet 012 ml/min ed 13:48 Calcium 9.1 8.50 - complet 012 mg/dl 10.10 ed [Mass/v 13:48 olume] in Serum or Plasma BUN/CRE 15 6 - 25 complet RATIO 012 ratio ed 13:48 OSMOLAL 283 272 - complet ITY 012 -_[id number] ed 13:48 \BLDo\G complet 012 LOMERUL ed 13:48 AR FILTRAT ION RATE INTERPR ETATION \BLDx\ Normal complet 012 Range: ed 13:48 >60 Ml/min/ 1.73 sq meters If complet 012 patient ed 13:48 is Cyn n, multipl y GFR by 1.120. *GFR complet 012 only ed 13:48 applies to adults over the age 18. DRUG SCREEN RAPID URINE DIMENSION (12-07-2011 11:52) DIMENSI complet 012 ON ed 11:52 RAPID URINE DRUG SCREEN mines NEG. complet 012 ed 11:52 ates NEG. complet 012 ed 11:52 azepine POS. complet s 012 ed 11:52 NEG. complet 012 ed 11:52 ne NEG. complet 012 ed 11:52 POS. complet 012 ed 11:52 yclidin NEG. complet e 012 ed 11:52 noid NEG. complet 012 ed 11:52 Oxycodn NEGATIV complet 012 E ed 11:52 *POSITI complet 012 VE ed 11:52 RESULTS ARE CONSIDE RED PRESUMP TIVE* *POSITI complet 012 VE ed 11:52 RESULTS SHALL BE SENT TO [facility] FOR CONFIRM ATION* *UPON complet 012 REQUEST ed 11:52 * TH complet 012 IS TEST ed 11:52 ARTURO Jeronimo FOR MEDICAL DIAGNOS TIC USE ONLY TEST complet 012 PERFORM ed 11:52 ED BY: [facility] complet 012 FOUNDAT ed 11:[address] [place] complet 012 [place], ed 11:52 [place] [id number] ([id number] complet [id number] [id number]) ed 11:52 MEDICAL complet 012 ed 11:52 DIRECTO R: Chip Booth MD Procedures Procedure DOS Code Location Performer Comment ENDOSC 45.42 [facility] POLYPECTO L[facility] MY OF LG INTEST CLOSED 45.25 [facility] ENDOSCOPI LARY C BIOPSY OF LARGE INTESTINE Encounters Encounter Start End Date Code Location Performer Type Date Inpatient IMP Yan Maki ([place]) 3 11:12 3 10:25 [facility]
--- OUTSIDE RECORDS SUMMARY | 2017-03-14 16:11 | External Medical Summary Rpt | CCD ---
Author Author , RAE MCBRIDE Address Unknown Phone Care Team Providers Care Nurse Advocate Name Role Phone CRHIS BARTH, Unavailable Unavailable Conner Healy Unavailable Unavailable Adielvacassandra [facility] Purpose Continuity of Care Document - 12-07-2011 through 2016 Problems Code Diagnosis DOS Provider Status [id number] Active [facility] 562.01 Diverticuli [facility] [id number] Chronic [facility] E87.2 ACIDOSIS M54.5 LOW BACK PAIN N17.9 [...] MO 65 01 1 No 64 -2 NE 90 9- Lo EP 20 20 ng 17 13 er PO 5 WD Ac ER ti ve PA CK ET NE 00 01 2 No OT 00 -2 ON 80 9- Lo IX 84 20 ng [address] 9 Ac 40 ti ve MG TA BL ET FU 00 01 0 No RO 40 -2 SE 96 8- Lo IL 10 20 ng DE 20 13 er 4 40 Ac ti MG ve /4 ML AL NE 00 01 0 No OT 00 -2 [...] 2M ti G/ ve 0. 2M L NE 00 01 6 No OM 64 -2 [...] Lo OO 20 ng D 13 er [place] Ac R ti ve HU 00 [...] mg/dl ed Glucomt 20:30 r-mCnc Glucose BldC Glucomtr-[facility] (05-22-2012 16:32) Glucose 326 70-110 High complet BldC 013 mg/dl alert ed Glucomt 16:32 r-mCnc Glucose BldC [facility]comtr-[facility] (05-22-2012 11:43) Glucose 152 70-110 complet BldC 013 mg/dl ed Glucomt 11:43 r-mCnc Glucose BldC [facility]comtr-[facility] (05-22-2012 06:37) Glucose 143 70-110 complet BldC 013 mg/dl ed Glucomt 06:37 r-mCnc Glucose BldC [facility] (05-21-2012 20:28) Glucose 201 70-110 complet BldC 013 mg/dl ed Glucomt 20:28 r-mCnc Glucose BldC [facility]comtr-[facility] (05-21-2012 16:53) Glucose 184 70-110 complet BldC 013 mg/dl ed Glucomt 16:53 r-mCnc C dif Tox A+B Stl Ql (05-21-2012 15:00) C dif NOT NOT complet Tox A+B 013 DETECTE DETECTE ed Stl Ql 15:00 D Glucose BldC [facility]comtr-[facility] (05-21-2012 11:46) Glucose 164 70-110 complet BldC 013 mg/dl ed Glucomt 11:46 r-mCnc Glucose BldC Glucomtr-[facility] (05-21-2012 06:48) Glucose 01-29-2 178 70-110 complet BldC 013 mg/dl ed Glucomt 06:48 r-[facility] C dif Tox A+B Stl Ql (05-21-2012 00:15) C dif NOT NOT complet Tox A+B 013 DETECTE DETECTE ed Stl Ql 00:15 D Glucose BldC Glucomtr-mCnc (05-20-2012 21:21) Glucose 260 70-110 complet BldC 013 mg/dl ed Glucomt 21:21 r-[facility] Glucose BldC [facility]tr-[facility] (05-20-2012 17:01) Glucose 114 70-110 complet BldC 013 mg/dl ed Glucomt 17:01 r-[facility] C-REACTIVE PROTEIN (05-20-2012 13:30) C-REACT Less 0.0-0.9 complet AILIN 013 than ed PROTEIN 13:30 0.2 MG/DL IgA Ser-mCnc (05-20-2012 13:27) IgA 241 81-463 complet Ser-mCn 013 mg/dL ed c 13:27 tTG IgA Ser-aCnc (05-20-2012 13:14) tTG IgA Less () complet 013 than 1 ed Ser-aCn 13:14 U/mL c Glucose dC Glucomtr-[facility] (05-20-2012 12:01) Glucose 314 70-110 High complet BldC 013 mg/dl alert ed Glucomt 12:01 r-[facility] Glucose dC Glucomtr-[facility] (05-20-2012 06:39) Glucose 167 70-110 complet BldC 013 mg/dl ed Glucomt 06:39 r-[facility] COMPREHENSIVE METABOLIC PANEL (05-20-2012 06:20) Glucose [...] 1 ed SerPl-m 05:30 [facility] Glucose [facility] Glucom-[facility] (05-17-2012 20:33) Glucose 112 70-110 complet BldC 013 mg/dl [facility] 20:[facility] Glucomtr-[facility] (05-17-2012 17:02) Glucose 120 70-110 complet BldC 013 mg/dl ed Glucomt 17:02 r-[facility] URINALYSIS/COMPLETE (05-17-2012 15:57) URINE YELLOW YELLOW [...] #/hpf ed S CELLS 15:57 Glucose BldC Glucomtr-[facility] (05-17-2012 12:32) Glucose 188 70-110 complet BldC 013 mg/dl ed Glucomt 12:32 r-[facility] COMPREHENSIVE METABOLIC PANEL (05-17-2012 12:00) Glucose [...] E ed IGG 12:[place] [address] (12-18-2011 14:10) _TC complet 012 Level ed [...] 6.90 ed nd 13:48 form/10 0 leukocy sinan in Blood by Manual count Eosinop 0.13 [...] complet 012 PERFORM ed 11:52 ED BY: [facility] ory 55 complet 012 FOUNDAT ed 11:[address] [place] complet 012 [place], ed 11:52 [place] [address] ([id number] complet 012 [id number]) ed 11:52 MEDICAL complet 012 ed 11:52 DIRECTO R: Chip Booth MD Procedures Procedure DOS Code Location Performer Comment ENDOSC 45.42 [facility] POLYPECTO [facility] MY OF LG INTEST CLOSED 45.25 [facility] ENDOSCOPI [facility] C BIOPSY OF LARGE INTESTINE Encounters Encounter Start End Date Code Location Performer Type Date Inpatient IMP [place] ([place]) 3 11:12 3 10:25 [facility]
--- OUTSIDE RECORDS SUMMARY | 2017-03-14 16:12 | External Medical Summary Rpt | CCD ---
Author Author [facility] Address Unknown Phone Unavailable Purpose Continuity of Care Document - through 2016
--- OUTSIDE RECORDS SUMMARY | 2017-03-14 16:12 | External Medical Summary Rpt | CCD ---
Demographics Preferred Language Norwegian Marital Status Unknown Orthodox Affiliation Unknown Race Unknown Ethnic Group Unknown Author Author , RAE MCBRIDE Address Unknown Phone Immunization Unable to retrieve immunization data due to connection failure with Immunization Registry. Please try again later.
--- OUTSIDE RECORDS SUMMARY | 2017-03-14 16:12 | External Medical Summary Rpt | CCD ---
Demographics Preferred Language Welsh Marital Status Unknown Jewish Affiliation Unknown Race Unknown Ethnic Group Unknown Author Author , RAE MCBRIDE Address Unknown Phone Immunization Unable to retrieve immunization data due to connection failure with Immunization Registry. Please try again later.
--- OUTSIDE RECORDS SUMMARY | 2017-03-14 16:13 | External Medical Summary Rpt ---
Author Author KEVINANNE-MARIE Young, [employer] Organization [employer] Address Unknown Phone Unavailable Results Glucose [Mass/volume] in Serum or Plasma Observa Value Referen Units Interpr Notes Date tion ce etation Range Glucose 74 - 106 mg/dL High Oct 05 [Mass/vol alert 2016 5:10 ume] in CRITICAL PM Serum or RESULTS Plasma RESU LTS CALLED TO: CARLY 10/05/16 1735 Rosa Ibarra nda Glucose [Mass/volume] in Serum or Plasma Observa Value Referen Units Interpr Notes Date tion ce etation Range Glucose 74 - 106 mg/dL High Oct 05 [Mass/vol alert 2016 ume] in CRITICAL 12:10 PM Serum or RESULTS Plasma RESU LTS CALLED TO: 10/05/16 1257 Ela Munoz Glucose [Mass/volume] in Capillary blood by Glucometer Observa Value Referen Units Interpr Notes Date tion ce etation Range Glucose 70 - 110 mg/dl High No Sep 15 [Mass/vol alert informati 2016 ume] in on in 12:04 PM Capillary source blood by data Glucomete r Glucose [Mass/volume] in Capillary blood by Glucometer Observa Value Referen Units Interpr Notes Date tion ce etation Range Glucose 70 - 110 mg/dl High No Sep 15 [Mass/vol alert informati 2016 6:13 ume] in on in AM Capillary source blood by data Glucomete r CBC W Auto Differential panel in Blood Observa Value Referen Units Interpr Notes Date tion ce etation Range Basophils 0 - 0.2 K/MM3 Normal No Oct 05 informati 2017 6:00 [#/volume on in AM ] in source Blood by data Automated count Basophils 0.1 - 2.0 % Low No Vipin 15 /100 informati 2017 6:00 leukocyte on in AM s in source Blood by data Automated count Eosinophi 0.0 - 0.4 K/mm3 Normal No Vipin 15 ls informati 2016 6:00 [#/volume on in AM ] in source Blood by data Automated count Eosinophi 0.1 - % Normal No Sep 15 ls/100 12.0 informati 2016 6:00 leukocyte on in AM s in source Blood by data Automated count Granulocy 1.8 - 7.8 K/mm3 High No Vipin 15 sinan informati 2016 6:00 [#/volume on in AM ] in source Blood by data Automated count Granulocy 37.0 - % High No Vipin 15 sinan/100 80.0 informati 2016 6:00 leukocyte on in AM s in source Blood by data Automated count Hematocri 37.0 - % Low No Sep 15 t [Volume 47.0 informati 2016 6:00 on in AM Fraction] source of Blood data Hemoglobi 12.2 - g/dL Low No Sep 15 n 16.2 informati 2017 6:00 [Mass/vol on in AM ume] in source Blood data Lymphocyt 0.7 - 4.5 K/mm3 Normal No Sep 15 es informati 2017 6:00 [#/volume on in AM ] in source Unspecifi data ed specimen by Automated count Lymphocyt 10 - 50.0 % Low No Sep 15 es informati 2017 6:00 [#/volume on in AM ] in source Unspecifi data ed specimen by Automated count Erythrocy 27 - 31.2 pg Low No Sep 15 te mean informati 2016 6:00 corpuscul on in AM ar source hemoglobi data n [Entitic mass] Erythrocy 31.8 - g/dl Low No Sep 15 te mean 35.4 informati 2016 6:00 corpuscul on in AM ar source hemoglobi data n concentra tion [Mass/vol ume] by Automated count Erythrocy 82.2 - fl Normal No Sep 15 te mean 97.8 informati 2017 6:00 corpuscul on in AM ar volume source [Entitic data volume] by Automated count Monocytes 0.1 - 1.0 K/mm3 Normal No Vipin 15 informati 2017 6:00 [#/volume on in AM ] in source Blood by data Automated count Monocytes 1.7 - 9.3 % Normal No Vipin 15 /100 informati 2016 6:00 leukocyte on in AM s in source Blood by data Automated count Platelet 7.4 - fl Low No Sep 15 mean 10.4 inform2016 6:00 volume on in AM [Entitic source volume] data in Blood by Automated count Platelets 142 - 424 K/mm3 Normal No Vipin 15 inform2016 6:00 [#/volume on in AM ] in source Blood data Erythrocy 4.2 - 5.4 M/mm3 Low No Sep 15 sinan informati 2016 6:00 [#/volume on in AM ] in source Amniotic data fluid Erythrocy 11.5 - % Normal No Sep 15 te 17.5 informati 2016 6:00 distribut on in AM ion width source [Entitic data volume] by Automated count Leukocyte 4.8 - K/MM3 Normal No Sep 15 s 10.8 inform2016 6:00 [#/volume on in AM ] in source Blood data Differential panel, method unspecified - Observa Value Referen Units Interpr Notes Date tion ce etation Range Hypochr 1+ No No No No Sep 15 omia informa informa informa informa 2016 [Presen tion in tion in tion in tion in 6:00 AM ce] in source source source source Blood data data data data LYMPH 4 10 - 50 % Low No Sep 15 2016 tion in 6:00 AM source data Monocytes 2 - 9 % Normal No Vipin 15 /100 informati 2016 6:00 leukocyte on in AM s in source Blood by data Automated count Platele NORMAL No No No No Sep 15 ts informa informa informa informa 2016 [Presen tion in tion in tion in tion in 6:00 AM ce] in source source source source Blood data data data data by Light microsc opy Neutrophi 42 - 76 % High No Sep 15 ls ati 2016 6:00 [#/volume on in AM ] in source Blood by data Automated count Cells No #CELLS No No Sep 15 Counted informati informati informati 2016 6:00 Total [#] on in on in on in AM in Blood source source source data data data Comprehensive metabolic 2000 panel in Serum or Plasma Observa Value Referen Units Interpr Notes Date tion ce etation Range Albumin/G 1.1 - 1.8 No Low No Sep 15 lobulin informati informati 2016 6:00 [Mass on in on in AM ratio] in source source Serum or data data Plasma Albumin 3.4 - 5.0 gm/dL Low No Sep 15 [Mass/vol informati 2016 6:00 ume] in on in AM Serum or source Plasma data Alkaline 46 - 116 U/L Normal No Sep 15 phosphata informati 2017 6:00 se on in AM [Enzymati source c data activity/ volume] in Serum or Plasma Bilirubin 0.2 - 1.0 mg/dL Normal No Oct 05 .total informati 2016 6:00 [Mass/vol on in AM ume] in source Serum or data Plasma Urea 7 - 18 mg/dL High No Oct 05 nitrogen informati 2016 6:00 [Mass/vol on in AM ume] in source Serum or data Plasma Calcium 8.5 - mg/dL Normal No Oct 05 [Mass/vol 10.1 informati 2016 6:00 ume] in on in AM Serum or source Plasma data Chloride 98 - 107 mmoL/L Low No Sep 15 [Moles/vo informati 2016 6:00 lume] in on in AM Serum or source Plasma data Carbon 21.0 - mmoL/L High Oct 05 dioxide, 32.0 alert NOTIFICAT 2017 6:00 total ION AM [Moles/vo RESULT lume] in Serum or Plasma Creatinin 0.55 - mg/dL High No Sep 15 e 1.02 informati 2016 6:00 [Mass/vol on in AM ume] in source Serum or data Plasma Creatinin 50 - 200 ML/MIN No No Oct 05 e renal informati informati 2016 6:00 clearance on in on in AM source source predicted data data by Cockcroft -Gault formula Estimated 59- ML/MIN Low REFERENCE Sep 15 RANGE: 2017 6:00 glomerula >60 AM r ML/MIN/1. filtratio 73 SQUARE n rate METERSIf (GF this patient is -A merican, then multiply theresult by 1.210. Globulin 1.3 - 3.2 gm/dL High No Sep 15 [Mass/vol informati 2017 6:00 ume] in on in AM Serum source data Glucose 74 - 106 mg/dL High Oct 05 [Mass/vol 2016 6:00 ume] in CRITICAL AM Serum or RESULTS Plasma RESU LTS CALLED TO: CONSTANTINO Castillo 10/05/16 0715 Vicki Hicks Potassium 3.5 - 5.1 mmoL/L Normal No Oct 05 informati 2016 6:00 [Moles/vo on in AM lume] in source Serum or data Plasma Sodium 136 - 145 mmoL/L Low No Oct 05 [Moles/vo informati 2016 6:00 lume] in on in AM Serum or source Plasma data Aspartate 15 - 37 U/L Low No Oct 05 informati 2016 6:00 aminotran on in AM sferase source [Enzymati data c activity/ volume] in Serum or Plasma Alanine 12 - 78 U/L Normal No Oct 05 aminotran informati 2016 6:00 sferase on in AM [Enzymati source c data activity/ volume] in Serum or Plasma Protein 6.4 - 8.2 gm/dL High No Oct 05 [Mass/vol informati 2016 6:00 ume] in on in AM Serum or source Plasma data Glucose [Mass/volume] in Capillary blood by Glucometer Observa Value Referen Units Interpr Notes Date ti etation Range Glucose 70 - 110 mg/dl High No Oct 04 [Mass/vol alert informati 2016 8:25 ume] in on in PM Capillary source blood by data Glucomete r Glucose [Mass/volume] in Serum or Plasma Observa Value Referen Units Interpr Notes Date ti etation Range Glucose 74 - 106 mg/dL High Oct 04 [Mass/vol 2016 4:45 ume] in CRITICAL PM Serum or RESULTS Plasma RESU LTS CALLED TO: DAJ 10/04/16 1710 Rosa Ibarra ndmichael Glucose [Mass/volume] in Capillary blood by Glucometer Observa Value Referen Units Interpr Notes Date ti ce etation Range Glucose 70 - 110 mg/dl High No Sep 14 [Mass/vol alert informati 2016 4:36 ume] in on in PM Capillary source blood by data Glucomete r Glucose [Mass/volume] in Capillary blood by Glucometer Observa Value Referen Units Interpr Notes Date ti ce etation Range Glucose 70 - 110 mg/dl High No Sep 14 [Mass/vol alert informati 2017 ume] in on in 12:08 PM Capillary source blood by data Glucomete r Glucose [Mass/volume] in Capillary blood by Glucometer Observa Value Referen Units Interpr Notes Date ti ce etation Range Glucose 70 - 110 mg/dl High No Sep 14 [Mass/vol informati 2017 6:24 ume] in on in AM Capillary source blood by data Glucomete r Glucose [Mass/volume] in Capillary blood by Glucometer Observa Value Referen Units Interpr Notes Date ti ce etation Range Glucose 70 - 110 mg/dl High No Sep 13 [Mass/vol informati 2017 8:53 ume] in on in PM Capillary source blood by data Glucomete r Glucose [Mass/volume] in Capillary blood by Glucometer Observa Value Referen Units Interpr Notes Date ti ce etation Range Glucose 70 - 110 mg/dl High No Sep 13 [Mass/vol informati 2016 4:53 ume] in on in PM Capillary source blood by data Glucomete r Glucose [Mass/volume] in Capillary blood by Glucometer Observa Value Referen Units Interpr Notes Date ti ce etation Range Glucose 70 - 110 mg/dl High No Sep 13 [Mass/vol informati 2016 ume] in on in 11:38 AM Capillary source blood by data Glucomete r Glucose [Mass/volume] in Capillary blood by Glucometer Observa Value Referen Units Interpr Notes Date ti ce etation Range Glucose 70 - 110 mg/dl High No Sep 13 [Mass/vol informati 2016 6:31 ume] in on in AM Capillary source blood by data Glucomete r Glucose [Mass/volume] in Capillary blood by Glucometer Observa Value Referen Units Interpr Notes Date ti ce etation Range Glucose 70 - 110 mg/dl High No Sep 12 [Mass/vol informati 2017 8:54 ume] in on in PM Capillary source blood by data Glucomete r Urinalysis dipstick W Reflex Microscopic panel in Urine Observa Value Referen Units Interpr Notes Date ti ce etation Range Appeara CLEAR CLEAR No No No Oct 02 nce of informa informa informa 2017 Urine tion in tion in tion in 6:00 PM source source source data data data Amorpho 1+ NONE No No No Oct 02 us informa informa informa 2017 sedimen tion in tion in tion in 6:00 PM t source source source [Presen data data data ce] in Urine sedimen t by Light microsc opy Bacteri TRACE O No No No Oct 02 a informa informa informa 2016 [Presen tion in tion in tion in 6:00 PM ce] in source source source Urine data data data sedimen t by Light microsc opy Bilirub NEGATIV NEG No No No Oct 02 in E informa informa informa 2017 [Presen tion in tion in tion in 6:00 PM ce] in source source source Urine data data data by Test strip Erythro TRACE-L NEG No No No Oct 02 cytes YSED informa informa informa 2017 [Presen tion in tion in tion in 6:00 PM ce] in source source source Urine data data data Color YELLOW YELLOW No No No Oct 02 of informa informa informa 2017 Urine tion in tion in tion in 6:00 PM source source source data data data Glucose NEG No No No Oct 02 [Mass/vol informati informati informati 2017 6:00 ume] in on in on in on in PM Urine by source source source Test data data data strip Ketones NEGATIV NEG mg/dL No No Oct 02 E informa informa 2016 [Presen tion in tion in 6:00 PM ce] in source source Urine data data by Automat ed test strip Mucus NEGATIV NEG No No No Oct 02 [Presen E informa informa informa 2016 ce] in tion in tion in tion in 6:00 PM Urine source source source sedimen data data data t by Light microsc opy Nitrite NEGATIV NEG No No No Oct 02 E informa informa informa 2016 [Presen tion in tion in tion in 6:00 PM ce] in source source source Urine data data data by Test strip pH of 5.0 - 8.5 No Normal No Oct 02 Urine informati informati 2017 6:00 on in on in PM source source data data Protein NEG mg/dL High No Sep 12 [Mass/vol informati 2017 6:00 ume] in on in PM Urine by source Automated data test strip Erythro OCC 0 rbc/hpf No No Oct 02 cytes informa informa 2017 [Presen tion in tion in 6:00 PM ce] in source source Urine data data sedimen t by Light microsc opy Specific 1.005 - No Normal No Oct 02 gravity 1.030 informati informati 2017 6:00 of Urine on in on in PM source source data data Epithel 3-5 0 - 5 #/hpf No No Oct 02 ial informa informa 2017 cells.s tion in tion in 6:00 PM quamous source source data data [Presen ce] in Urine sedimen t by Microsc opy high power field Urobili 0.2 NEG E.U./dL No No Oct 02 nogen informa informa 2016 [Presen tion in tion in 6:00 PM ce] in source source Urine data data by Test strip Leukocyte O wbc/hpf No No Oct 02 s informati informati 2017 6:00 [#/volume on in on in PM ] in source source Urine data data Urinalysis dipstick W Reflex Microscopic panel in Urine Observa Value Referen Units Interpr Notes Date tion ce etation Range Appeara CLEAR CLEAR No No No Oct 02 nce of informa informa informa 2017 Urine tion in tion in tion in 6:00 PM source source source data data data Bilirub NEGATIV NEG No No No Oct 02 in E informa informa informa 2016 [Presen tion in tion in tion in 6:00 PM ce] in source source source Urine data data data by Test strip Erythro TRACE-L NEG No No No Oct 02 cytes YSED informa informa informa 2016 [Presen tion in tion in tion in 6:00 PM ce] in source source source Urine data data data Color YELLOW YELLOW No No No Oct 02 of informa informa informa 2017 Urine tion in tion in tion in 6:00 PM source source source data data data Glucose NEG No No No Oct 02 [Mass/vol informati informati informati 2017 6:00 ume] in on in on in on in PM Urine by source source source Test data data data strip Ketones NEGATIV NEG mg/dL No No Oct 02 E informa informa 2016 [Presen tion in tion in 6:00 PM ce] in source source Urine data data by Automat ed test strip Mucus NEGATIV NEG No No No Vipin 12 [Presen E informa informa informa 2016 ce] in tion in tion in tion in 6:00 PM Urine source source source sedimen data data data t by Light microsc opy Nitrite NEGATIV NEG No No No Sep 12 E informa informa informa 2016 [Presen tion in tion in tion in 6:00 PM ce] in source source source Urine data data data by Test strip pH of 5.0 - 8.5 No Normal No Sep 12 Urine informati informati 2017 6:00 on in on in PM source source data data Protein NEG mg/dL High No Sep 12 [Mass/vol informati 2017 6:00 ume] in on in PM Urine by source Automated data test strip Specific 1.005 - No Normal No Sep 12 gravity 1.030 informati informati 2017 6:00 of Urine on in on in PM source source data data Urobili 0.2 NEG E.U./dL No No Sep 12 nogen informa informa 2016 [Presen tion in tion in 6:00 PM ce] in source source Urine data data by Test strip Gas panel in Arterial blood Observa Value Referen Units Interpr Notes Date tion ce etation Range Base -2.4-+2.3 MMOL/L High No Vipin 12 excess in informati 2017 5:27 Arterial on in PM blood source data Arteria ACCEPTA No No No No Vipin 12 l BLE informa informa informa informa 2017 patency tion in tion in tion in tion in 5:27 PM Wrist source source source source artery data data data data --pre arteria l punctur e Bicarbona 22.0 - MMOL/L High No Vipin 12 te 26.0 informati 2017 5:27 [Moles/vo on in PM lume] in source Arterial data blood Oxygen No No No No Vipin 12 content informati informati informati informati 2017 5:27 in on in on in on in on in PM Arterial source source source source blood data data data data Carbon 35.0 - MMHG High Oct 02 dioxide 45.0 2016 5:27 [Partial CRITICAL PM pressure] RESULTS in Arterial RESU blood LTS CALLED TO: RESULTS TAKEN STAT TO DR CAST 10/02/16 1731 Manolo,Ther tre pH of 7.35 - MMOL/L Low No Oct 02 Arterial 7.45 informati 2016 5:27 blood on in PM source data Oxygen 80 - 100 MMHG Low No Oct 02 [Partial informati 2017 5:27 pressure] on in PM in source Arterial data blood Oxygen 90 - 100 % Low alert No Oct 02 saturatio informati 2016 5:27 n.calcula on in PM cordell from source oxygen data partial pressure in Arterial blood Carbon 23 - 27 MMOL/L High No Oct 02 dioxide, informati 2017 5:27 total on in PM [Moles/vo source lume] in data Arterial blood Natriutietic peptide B [Mass/volume] in Serum or Plasma Observa Value Referen Units Interpr Notes Date tion ce etation Range Natriutie 0 - 100 pg/mL High No Sep 12 tic informati 2016 5:20 peptide B on in PM source [Mass/vol data ume] in Serum or Plasma CBC W Auto Differential panel in Blood Observa Value Referen Units Interpr Notes Date tion ce etation Range Basophils 0 - 0.2 K/MM3 Normal No Sep 12 informati 2017 5:20 [#/volume on in PM ] in source Blood by data Automated count Basophils 0.1 - 2.0 % Normal No Sep 12 / informati 2017 5:20 leukocyte on in PM s in source Blood by data Automated count Eosinophi 0.0 - 0.4 K/mm3 Normal No Sep 12 ls informati 2016 5:20 [#/volume on in PM ] in source Blood by data Automated count Eosinophi 0.1 - % Normal No Sep 12 ls/100 12.0 informati 2016 5:20 leukocyte on in PM s in source Blood by data Automated count Granulocy 1.8 - 7.8 K/mm3 High No Sep 12 sinan informati 2016 5:20 [#/volume on in PM ] in source Blood by data Automated count Granulocy 37.0 - % High No Sep 12 sinan/100 80.0 informati 2016 5:20 leukocyte on in PM s in source Blood by data Automated count Hematocri 37.0 - % Low No Oct 02 t [Volume 47.0 informati 2016 5:20 on in PM Fraction] source of Blood data Hemoglobi 12.2 - g/dL Low No Vipin 12 n 16.2 informati 2016 5:20 [Mass/vol on in PM ume] in source Blood data Lymphocyt 0.7 - 4.5 K/mm3 Normal No Oct 02 es inform2016 5:20 [#/volume on in PM ] in source Unspecifi data ed specimen by Automated count Lymphocyt 10 - 50.0 % Normal No Oct 02 es inform2016 5:20 [#/volume on in PM ] in source Unspecifi data ed specimen by Automated count Erythrocy 27 - 31.2 pg Low No Oct 02 te mean inform2016 5:20 corpuscul on in PM ar source hemoglobi data n [Entitic mass] Erythrocy 31.8 - g/dl Low No Oct 02 te mean 35.4 informati 2016 5:20 corpuscul on in PM ar source hemoglobi data n concentra tion [Mass/vol ume] by Automated count Erythrocy 82.2 - fl Normal No Oct 02 te mean 97.8 informati 2016 5:20 corpuscul on in PM ar volume source [Entitic data volume] by Automated count Monocytes 0.1 - 1.0 K/mm3 Normal No Oct 02 inform2016 5:20 [#/volume on in PM ] in source Blood by data Automated count Monocytes 1.7 - 9.3 % Normal No Sep 12 /100 informati 2016 5:20 leukocyte on in PM s in source Blood by data Automated count Platelet 7.4 - fl Low No Oct 02 mean 10.4 informati 2016 5:20 volume on in PM [Entitic source volume] data in Blood by Automated count Platelets 142 - 424 K/mm3 Normal No Oct 02 informati 2016 5:20 [#/volume on in PM ] in source Blood data Erythrocy 4.2 - 5.4 M/mm3 Low No Sep 12 sinan informati 2016 5:20 [#/volume on in PM ] in source Amniotic data fluid Erythrocy 11.5 - % Normal No Oct 02 te 17.5 informati 2016 5:20 distribut on in PM ion width source [Entitic data volume] by Automated count Leukocyte 4.8 - K/MM3 Normal No Sep 12 s 10.8 informati 2016 5:20 [#/volume on in PM ] in source Blood data HLA-B27 [Presence] by Probe & target amplification method Observa Value Referen Units Interpr Notes Date tion ce etation Range HLA-B27 Negativ . No No HLA-B*2 September 08 e informa informa 2016 [Presen tion in tion in Negativ 10:40 ce] by source source eHLA AM Probe & data data allele target interpr etation amplifi for cation all method loci based on IMGT/HL Adataba se version 3.25.0T his test was develop ed and its perform ance charact eristic sdeterm ined by [facility] . It has not been cleared or approve dby the Food and Drug Adminis tration .[facility] CLIA ID Number [id number] test was perform ed using PCR (Polyme rase ChainRe action) /SSOP (Sequen ce Specifi c Oligonu cleotid e Probes) techniq ue. SBT (Sequen ce Based Typing) and/or SSP(Seq uence Specifi c Primers ) may be used as supplem entalme thods when necessa ry. Please contact [facility] at [phone] if you have any questio ns.Dire ctor of [facility] Laborat oryDr Jos Tran, PhDPerf ormed at: 2Q - [facility] [id number] [place], [place] [id number]Lab Directo r: Jos Tran PhD, Phone: [phone] Comprehensive metabolic 2000 panel in Serum or Plasma Observa Value Referen Units Interpr Notes Date tion ce etation Range Albumin/G 1.1 - 1.8 No Low No September 08 lobulin informati informati 2016 [Mass on in on in 10:40 AM ratio] in source source Serum or data data Plasma Albumin 3.4 - 5.0 gm/dL Normal No September 08 [Mass/vol informati 2016 ume] in on in 10:40 AM Serum or source Plasma data Alkaline 46 - 116 U/L Normal No September 08 phosphata informati 2016 se on in 10:40 AM [Enzymati source c data activity/ volume] in Serum or Plasma Bilirubin 0.2 - 1.0 mg/dL Normal No September 08 .total informati 2016 [Mass/vol on in 10:40 AM ume] in source Serum or data Plasma Urea 7 - 18 mg/dL Normal No September 08 nitrogen informati 2016 [Mass/vol on in 10:40 AM ume] in source Serum or data Plasma Calcium 8.5 - mg/dL Normal No September 08 [Mass/vol 10.1 informati 2016 ume] in on in 10:40 AM Serum or source Plasma data Chloride 98 - 107 mmoL/L Low No September 08 [Moles/vo informati 2016 lume] in on in 10:40 AM Serum or source Plasma data Carbon 21.0 - mmoL/L High No September 08 dioxide, 32.0 2016 total on in 10:40 AM [Moles/vo source lume] in data Serum or Plasma Creatinin 0.55 - mg/dL Normal No September 08 e 1.02 2016 [Mass/vol on in 10:40 AM ume] in source Serum or data Plasma Estimated 59- ML/MIN Low REFERENCE September 08 RANGE: 2016 glomerula >60 10:40 AM r ML/MIN/1. filtratio 73 SQUARE n rate METERSIf (GF this patient is -A merican, then multiply theresult by 1.210. Globulin 1.3 - 3.2 gm/dL High No September 08 [Mass/vol informati 2016 ume] in on in 10:40 AM Serum source data Glucose 74 - 106 mg/dL High No September 08 [Mass/vol informati 2016 ume] in on in 10:40 AM Serum or source Plasma data Potassium 3.5 - 5.1 mmoL/L Normal No September 082016 [Moles/vo on in 10:40 AM lume] in source Serum or data Plasma Sodium 136 - 145 mmoL/L Normal No September 08 [Moles/vo informati 2016 lume] in on in 10:40 AM Serum or source Plasma data Aspartate 15 - 37 U/L Normal No September 082016 aminotran on in 10:40 AM sferase source [Enzymati data c activity/ volume] in Serum or Plasma Alanine 12 - 78 U/L Normal No September 08 aminotran 2016 sferase on in 10:40 AM [Enzymati source c data activity/ volume] in Serum or Plasma Protein 6.4 - 8.2 gm/dL Normal No September 08 [Mass/vol informati 2017 ume] in on in 10:40 AM Serum or source Plasma data Lipid 1996 panel in Serum or Plasma Observa Value Referen Units Interpr Notes Date tion ce etation Range Cholester < 200 mg/dL High No September 08 ol 2016 [Moles/vo on in 10:40 AM lume] in source Unspecifi data ed specimen Cholester 40 - 60 MG/DL Normal No September 08 ol in HDL inform2016 on in 10:40 AM [Mass/vol source ume] in data Serum or Plasma Cholester 0 - 130 mg/dL High No September 08 ol in LDL inform2016 on in 10:40 AM [Mass/vol source ume] in data Serum or Plasma by calculati on Triglycer 30 - 200 mg/dL High No September 08 vargas 2016 [Moles/vo on in 10:40 AM lume] in source Serum or data Plasma Cholester 0 - 40 No High No September 08 ol in informati inform2016 VLDL on in on in 10:40 AM [Mass/vol source source ume] in data data Serum or Plasma Hemoglobin A1c in Blood Observa Value Referen Units Interpr Notes Date ti ce etation Range Hemoglo 9.1 0.0 - % High < 6% September 08 bin A1c 7.0 NON-ALPHONSE 2017 in BETIC 10:40 Blood LEVEL< AM 7% CONTROL LED DIABETI C LEVEL> 8% [place] [id number] Observa Value Referen Units Interpr Notes Date ti ce etation Range _TC No No No No Dec 19 Level informa informa informa informa 2011 IV - tion in tion in tion in tion in 2:38 PM Surgica source source source source l data data data data Patholo gy, Gross and Microsc opic Exam_ COMMENT TRANSVE No No No No Dec 19 RSE informa informa informa informa 2011 COLON tion in tion in tion in tion in 2:38 PM AVM source source source source data data data data CBC W DIFF AUTOMATED Observa Value Referen Units Interpr Notes Date ti ce etation Range Leukocy 9.0 4.60 - K/uL No No Dec 11 sinan 10.20 informa informa 2011 [#/volu tion in tion in 2:13 PM me] in source source Blood data data by Automat ed count Erythro 4.51 4.04 - M/uL No No Dec 11 cytes 6.13 informa informa 2011 [#/volu tion in tion in 2:13 PM me] in source source Blood data data by Automat ed count Hemoglo 13.2 12.20 - g/dL No Dec 11 bin 18.10 informa informa 2012 [Mass/v tion in tion in 2:13 PM olume] source source in data data Blood Hematoc 40 37.70 - % No Dec 11 rit 53.70 informa informa 2012 [Volume tion in tion in 2:13 PM source source Fractio data data n] of Blood by Automat ed count Erythro 89.1 80.0 - fL No Dec 11 cyte 97.0 informa informa 2012 mean tion in tion in 2:13 PM corpusc source source ular data data volume [Entiti c volume] by Automat ed count Erythro 29.3 27.0 - pg No Dec 11 cyte 31.20 informa informa 2012 mean tion in tion in 2:13 PM corpusc source source ular data data hemoglo bin [Entiti c mass] by Automat ed count Erythro 32.8 31.80 - g/dL No Dec 11 cyte 35.40 informa informa 2012 mean tion in tion in 2:13 PM corpusc source source ular data data hemoglo bin concent ration [Mass/v olume] by Automat ed count Erythro 13.8 11.60 - % No Dec 11 cyte 14.80 informa informa 2012 distrib tion in tion in 2:13 PM ution source source width data data [Ratio] by Automat ed count Platele 256 142 - K/uL No Dec 11 ts 424 informa informa 2012 [#/volu tion in tion in 2:13 PM me] in source source Blood data data by Automat ed count Lymphoc 23.2 10.0 - % No Dec 11 ytes/10 50.0 informa informa 2012 0 tion in tion in 2:13 PM leukocy source source sinan in data data Blood by Automat ed count Monocyt 4.7 0.0 - % No Dec 11 es/100 12.0 informa informa 2012 leukocy tion in tion in 2:13 PM sinan in source source Blood data data by Automat ed count Neutrop 69.9 37.0 - % No Dec 11 hils.ba 80.0 informa informa 2012 nd tion in tion in 2:13 PM form/10 source source 0 data data leukocy sinan in Blood by Manual count Eosinop 1.50 0.00 - % No No Dec 11 hils/10 7.00 informa informa 2012 0 tion in tion in 2:13 PM leukocy source source sinan in data data Blood by Automat ed count Basophi 0.70 0.00 - % No No Dec 11 ls/100 2.50 informa informa 2012 leukocy tion in tion in 2:13 PM sinan in source source Blood data data by Automat ed count Lymphoc 2.08 0.60 - K/uL No No Dec 11 ytes/10 3.40 informa informa 2012 0 tion in tion in 2:13 PM leukocy source source sinan in data data Blood by Automat ed count Monocyt 0.42 0.00 - K/uL No No Dec 11 es/100 0.90 informa informa 2012 leukocy tion in tion in 2:13 PM sinan in source source Blood data data by Automat ed count Neutrop 6.26 2.00 - K/uL No No Dec 11 hils.ba 6.90 informa informa 2012 nd tion in tion in 2:13 PM form/10 source source 0 data data leukocy sinan in Blood by Manual count Eosinop 0.13 0.00 - K/uL No No Dec 11 hils/10 0.70 informa informa 2012 0 tion in tion in 2:13 PM leukocy source source sinan in data data Blood by Automat ed count Basophi 0.06 0.00 - K/uL No No Dec 11 ls/100 0.20 informa informa 2012 leukocy tion in tion in 2:13 PM sinan in source source Blood data data by Automat ed count Manual NOT No No No No Dec 11 Diff INDICAT informa informa informa informa 2012 ED tion in tion in tion in tion in 2:13 PM source source source source data data data data Basic metabolic 2000 panel in Serum or Plasma Observa Value Referen Units Interpr Notes Date tion ce etation Range Sodium 141 136 - mmol/L No No Dec 11 [Moles/ 145 informa informa 2012 volume] tion in tion in 2:11 PM in source source Serum data data or Plasma Potassi 3.9 3.50 - mmol/L No Dec 11 um 5.10 informa informa 2011 [Moles/ tion in tion in 2:11 PM volume] source source in data data Serum or Plasma Chlorid 106 98 - mmol/L No Dec 11 e 107 informa informa 2011 [Moles/ tion in tion in 2:11 PM volume] source source in data data Serum or Plasma TOTAL 32 21 - 32 mmol/L No Dec 11 CO2 informa informa 2011 tion in tion in 2:11 PM source source data data ANION 7 5 - 15 mmol/L No Dec 11 GAP informa informa 2011 tion in tion in 2:11 PM source source data data Glucose 115 70 - mg/dl No Dec 11 120 informa informa 2011 [Mass/v tion in tion in 2:11 PM olume] source source in data data Serum or Plasma Urea 15 7 - 18 mg/dl No Dec 11 nitroge informa informa 2011 n tion in tion in 2:11 PM [Mass/v source source olume] data data in Serum or Plasma Creatin 1.0 0.60 - mg/dl No Dec 11 ine 1.30 informa informa 2011 [Mass/v tion in tion in 2:11 PM olume] source source in data data Serum or Plasma AGE 61 No yrs No Dec 11 informa informa informa 2011 tion in tion in tion in 2:11 PM source source source data data data GFR 60 No ml/min No Dec 11 informa informa informa 2011 tion in tion in tion in 2:11 PM source source source data data data Calcium 9.1 8.50 - mg/dl No Dec 11 10.10 informa informa 2011 [Mass/v tion in tion in 2:11 PM olume] source source in data data Serum or Plasma BUN/CRE 15 6 - 25 ratio No Dec 11 RATIO informa informa 2011 tion in tion in 2:11 PM source source data data OSMOLAL 283 272 - -_295 No Dec 11 ITY 295 informa informa 2011 tion in tion in 2:11 PM source source data data \BLDo\G No No No Dec 11 LOMERUL informa informa informa informa 2012 AR tion in tion in tion in tion in 2:11 PM FILTRAT source source source source ION data data data data RATE INTERPR ETATION \BLDx\ Normal No No No No Dec 11 Range: informa informa informa informa 2012 >60 tion in tion in tion in tion in 2:11 PM Ml/min/ source source source source 1.73 sq data data data data meters If No No No No Dec 11 patient informa informa informa informa 2012 is tion in tion in tion in tion in 2:11 PM source source source source data data data data Cyn n, multipl y GFR by 1.120. *GFR No No No No Dec 11 only informa informa informa informa 2012 applies tion in tion in tion in tion in 2:11 PM to source source source source adults data data data data over the age 18. DRUG SCREEN RAPID URINE DIMENSION Observa Value Referen Units Interpr Notes Date tion ce etation Range DIMENSI No No No No Dec 06 ON informa informa informa informa 2012 RAPID tion in tion in tion in tion in 12:19 URINE source source source source PM DRUG data data data data SCREEN mines NEG. No 1000_ng No No Dec 06 informa /mL informa informa 2012 tion in tion in tion in 12:19 source source source PM data data data ates NEG. No 200_ng/ No No Dec 06 informa mL informa informa 2012 tion in tion in tion in 12:19 source source source PM data data data azepine POS. No 200_ng/ No No Dec 06 s informa mL informa informa 2012 tion in tion in tion in 12:19 source source source PM data data data NEG. No 300_ng/ No No Dec 06 informa mL informa informa 2012 tion in tion in tion in 12:19 source source source PM data data data ne NEG. No 300_ng/ No No Dec 06 informa mL informa informa 2012 tion in tion in tion in 12:19 source source source PM data data data POS. No 2000_ng No No Dec 06 informa /mL informa informa 2012 tion in tion in tion in 12:19 source source source PM data data data yclidin NEG. No 25_ng/m No No Dec 06 e informa L informa informa 2012 tion in tion in tion in 12:19 source source source PM data data data noid NEG. No 50_ng/m No No Dec 06 informa L informa informa 2012 tion in tion in tion in 12:19 source source source PM data data data Oxycodn NEGATIV No 100_ng/ No No Dec 06 E informa mL informa informa 2012 tion in tion in tion in 12:19 source source source PM data data data *POSITI No No No No Dec 06 VE informa informa informa informa 2012 RESULTS tion in tion in tion in tion in 12:19 ARE source source source source PM CONSIDE data data data data RED PRESUMP TIVE* *POSITI No No No No Dec 06 VE informa informa informa informa 2012 RESULTS tion in tion in tion in tion in 12:19 SHALL source source source source PM [facility] *UPON No No No No Dec 06 REQUEST informa informa informa informa 2012 * tion in tion in tion in tion in 12:19 source source source source PM data data data data TH No No No No Dec 06 IS TEST informa informa informa informa 2012 tion in tion in tion in tion in 12:19 PERORME source source source source PM D FOR data data data data MEDICAL DIAGNOS TIC USE ONLY TEST No No No No Dec 06 PERFORM informa informa informa informa 2012 ED BY: tion in tion in tion in tion in 12:19 source source source source PM data data data data [facility] No No No No Dec 06 FOUNDAT informa informa informa informa 2012 ION tion in tion in tion in tion in 12:19 DRIVE source source source source PM data data data data [place] No No No No Dec 06 [place], informa informa informa informa 2012 [place] tion in tion in tion in tion in 12:19 [id number] source source source source PM data data data data (606-84 No No No No Dec 06 9) informa informa informa informa 2012 tion in tion in tion in tion in 12:19 source source source source PM data data data data MEDICAL No No No No Dec 06 informa informa informa informa 2012 DIRECTO tion in tion in tion in tion in 12:19 R: source source source source PM data data data data Chip Booth MD
--- OUTSIDE RECORDS SUMMARY | 2017-03-14 16:13 | External Medical Summary Rpt ---
[...] Adminis tration .[facility] CLIA ID Number [id number] test was perform ed using PCR (Polyme rase ChainRe action) /SSOP (Sequen ce Specifi c Oligonu cleotid e Probes) techniq ue. SBT (Sequen ce Based Typing) and/or SSP(Seq uence Specifi c Primers ) may be used as supplem entalme thods when necessa ry. Please contact [facility] rServ[facility] e at [phone] if you have any questio ns.Dire ctor of [facility] Laborat oryDr Jos Tran, PhDPerf ormed at: 2Q - [facility] [id number] [place], [place] [address]Lab Directo r: Jos Tran PhD, Phone: [phone] Comprehensive metabolic 2000 panel in Serum or [...] [place] [address] Observa Value Referen Units Interpr Notes Date [...] [facility] *UPON No No [...] source source PM data data data data [facility] 55 No No No No Dec 06 FOUNDAT informa informa informa informa 2012 ION tion in tion in tion in tion in 12:19 DRIVE source source source source PM data data data data [place] No No No No Dec 06 [place], informa informa informa informa 2012 [place] tion in tion in tion in tion in 12:19 [id number] source source source source PM data data [...]
[2017-03-14 16:35] LABS: LYMPH # 0.9 K/mm3 (0.7-4.5); LYMPH % 14.3 % (10-50.0)
[2017-03-14 16:47] LABS: HEMOGLOBIN 8.8 g/dL (12.2-16.2)
[2017-03-14 16:52] LABS: ALLEN'S TEST ACCEPTABLE; ARTERIAL PO2 75.5 MMHG (80-100); ARTERIAL TCO2 42.1 MMOL/L (23-27); OXYGEN 5 LITER NASAL CANNUL
--- OUTSIDE RECORDS SUMMARY | 2017-03-14 17:31 | External Medical Summary Rpt | CCD ---
Author Author , RAE MCBRIDE Address Unknown Phone [email or web address] Care Team Providers Care Flight Communications Operator Name Role Phone CHRIS BARTH, Unavailable Unavailable Conner Healy Unavailable Unavailable Adielorcassandra [facility] Purpose Continuity of Care Document - 12-07-2011 through 2016 Problems Code Diagnosis DOS Provider Status 67766422 Active [facility] 562.01 Diverticuli [facility] [id number] Chronic [facility] E87.2 ACIDOSIS M54.5 LOW BACK PAIN [...] MO 65 01 1 No 64 -2 WI 90 9- Lo EP 20 20 ng 17 13 er PO 5 WD Ac ER ti ve PA CK ET WI 00 01 2 No OT 00 -2 ON 80 9- Lo IX 84 20 ng [address] 9 Ac 40 ti ve MG TA BL ET FU 00 01 0 No RO 40 -2 SE 96 8- Lo AR 10 20 ng DE 20 13 er 4 40 Ac ti MG ve /4 ML AL WI 00 01 0 No OT 00 -2 [...] 2M ti G/ ve 0. 2M L WI 00 01 6 No OM 64 -2 [...] Order Detail nces retati t Range on Gas panel in Arterial blood (03-14-2017 16:45) Arteria ACCEPTA complet l 017 BLE ed patency 16:45 Wrist artery --pre arteria l punctur e SOURCE LEFT complet 017 RADIAL ed 16:45 Differential panel, method unspecified - (10-05-2016 06:00) [...] mg/dl ed Glucomt 20:30 r-mCnc Glucose BldC Glucomtr-mCnc (05-22-2012 16:32) Glucose 326 70-110 High complet BldC 013 mg/dl alert ed Glucomt 16:32 r-mCnc Glucose BldC Glucomtr-mCnc (05-22-2012 11:43) Glucose 152 70-110 complet BldC 013 mg/dl ed Glucomt 11:43 r-mCnc Glucose BldC Glucomtr-mCnc (05-22-2012 06:37) Glucose 143 70-110 complet BldC 013 mg/dl ed Glucomt 06:37 r-mCnc Glucose BldC Glucomtr-mCnc (05-21-2012 20:28) Glucose 201 70-110 complet BldC 013 mg/dl ed Glucomt 20:28 r-mCnc Glucose BldC Glucomtr-mCnc (05-21-2012 16:53) Glucose 184 70-110 complet BldC 013 mg/dl ed Glucomt 16:53 r-mCnc C dif Tox A+B Stl Ql (05-21-2012 15:00) C dif NOT NOT complet Tox A+B 013 DETECTE DETECTE ed Stl Ql 15:00 D Glucose BldC Glucomtr-mCnc (05-21-2012 11:46) Glucose 164 70-110 complet BldC 013 mg/dl ed Glucomt 11:46 r-[facility] Glucose BldC Glucomtr-nc (05-21-2012 06:48) Glucose 178 70-110 complet BldC 013 mg/dl ed Glucomt 06:48 r-[facility] C dif Tox A+B Stl Ql (05-21-2012 00:15) C dif NOT NOT complet Tox A+B 013 DETECTE DETECTE ed Stl Ql 00:15 D Glucose BldC Glucomtr-[facility] (05-20-2012 21:21) Glucose 260 70-110 complet BldC 013 mg/dl ed Glucomt 21:21 r-[facility] Glucose dC Glucomtr-[facility] (05-20-2012 17:01) Glucose 114 70-110 complet BldC 013 mg/dl ed Glucomt 17:01 r-[facility] C-REACTIVE PROTEIN (05-20-2012 13:30) C-REACT Less 0.0-0.9 complet AILIN 013 than ed PROTEIN 13:30 0.2 MG/DL IgA Ser-mCnc (05-20-2012 13:27) IgA 241 81-463 complet Ser-mCn 013 mg/dL ed c 13:27 tTG IgA Ser-aCnc (05-20-2012 13:14) tTG IgA Less () complet 013 than 1 ed Ser-aCn 13:14 U/mL c Glucose dC Glucomtr-mCsc (05-20-2012 12:01) Glucose 314 70-110 High complet BldC 013 mg/dl alert ed Glucomt 12:01 r-[facility] Glucose BldC Glucomtr-mCsc (05-20-2012 06:39) Glucose 167 70-110 complet BldC 013 mg/dl ed Glucomt 06:39 r-[facility] COMPREHENSIVE METABOLIC PANEL (05-20-2012 06:20) Glucose [...] SerPl-c 06:20 Cnc LIPASE (05-20-2012 06:20) LIPASE 01-28-2 210 U/L 73-393 complet 013 ed 06:20 CBC with AUTO DIFF (05-20-2012 06:20) WBC # 7.6 4.8-10. complet Bld 013 K/MM3 8 ed Auto 06:20 RBC # 4.28 4.2-5.4 complet Bld 013 M/mm3 ed Auto 06:20 Hgb 12.7 12.2-16 complet Bld-mCn 013 g/dL .2 [...] ed Fr Bld 06:20 Auto LYMPH % 10.6 % 10-50.0 complet 013 ed 06:20 Monocyt 2.6 % 1.7-9.3 complet es Fr 013 ed Bld 06:20 Auto Eosinop 0.3 % 0.1-12. complet hil Fr 013 0 ed Bld 06:20 Auto Basophi 0.0 % 0.1-2.0 complet ls Fr 013 ed Bld 06:20 Auto Granulo 6.6 1.8-7.8 complet cytes # 013 K/mm3 ed Bld 06:20 Auto Lymphoc 0.8 0.7-4.5 complet ytes Fr 013 K/mm3 ed Bld 06:20 Auto Monocyt 05-20-2 0.2 0.1-1.0 complet es # 013 K/mm3 ed Bld 06:20 Auto Eosinop 05-20-2 0.0 0.0-0.4 complet hil # 013 K/mm3 ed Bld 06:20 Auto Basophi 05-20-2 0.0 0-0.2 complet ls # 013 K/MM3 [...] with AUTO DIFF (05-18-2012 05:35) WBC # 01-26-2 9.6 4.8-10. complet Bld 013 K/MM3 8 ed Auto 05:35 RBC # 05-18-2 4.81 4.2-5.4 complet Bld 013 M/mm3 ed Auto 05:35 Hgb 05-18-2 14.4 12.2-16 complet Bld-mCn 013 g/dL .2 [...] complet Auto 013 .5 ed 05:35 Platele 05-18-2 261 142-424 complet t Bld 013 K/mm3 ed Ql 05:35 Manual MEAN 7.5 fl 7.4-10. complet PLATELE 013 4 ed T 05:35 VOLUME Granulo 05-18-2 65.4 % 37.0-80 complet cytes 013 .0 [...] 013 K/mm3 ed Bld 05:35 Auto Monocyt 05-18-2 0.5 0.1-1.0 complet es # 013 K/mm3 ed Bld 05:35 Auto Eosinop 01-26-2 0.1 0.0-0.4 complet hil # 013 K/mm3 ed Bld 05:35 Auto Basophi 0.1 0-0.2 complet ls # 013 K/MM3 [...] complet 013 mg/dL 1 ed SerPl-m 05:30 Cnc Glucose [facility] Glucomtr-[facility] (05-17-2012 20:33) Glucose 112 70-110 complet BldC 013 mg/dl ed Glucomt 20:33 [facility] Glucose dC Glucomtr-[facility] (05-17-2012 17:02) Glucose 120 70-110 complet BldC 013 mg/dl ed Glucomt 17:02 r-[facility] URINALYSIS/COMPLETE (05-17-2012 15:57) URINE YELLOW YELLOW complet COLOR 013 ed 15:57 URINE SL CLEAR complet APPEARA 013 CLOUDY ed NCE 15:57 URINE 01-25-2 NEGATIV NEG complet GLUCOSE 013 E ed [...] 013 #/hpf ed S CELLS 15:57 Glucose dC Glucomtr-[facility] (05-17-2012 12:32) Glucose 188 70-110 complet BldC 013 mg/dl ed Glucomt 12:32 r-[facility] COMPREHENSIVE METABOLIC PANEL (05-17-2012 12:00) Glucose [...] SerPl-m 013 gm/dL ed Cnc 12:00 Albumin 4.2 3.4-5.0 complet 013 gm/dL ed SerPl-m [...] 013 0 ed Bld 12:00 Auto Basophi 2 0.1 % 0.1-2.0 complet ls Fr 013 ed Bld 12:00 Auto Granulo 2 11.5 1.8-7.8 complet cytes # 013 K/mm3 ed Bld 12:00 Auto Lymphoc 05-17-2 2.9 0.7-4.5 complet ytes Fr 013 K/mm3 ed Bld 12:00 Auto Monocyt 05-17-2 0.7 0.1-1.0 complet es # 013 K/mm3 ed Bld 12:00 Auto Eosinop 2 0.0 0.0-0.4 complet hil # 013 K/mm3 ed Bld 12:00 Auto Basophi 2 0.0 0-0.2 complet ls # 013 K/MM3 ed Bld 12:00 Auto H. PYLORI IGG ANTIBODY (05-17-2012 12:00) H. NEGATIV complet PYLORI 013 E ed IGG 12:[place] [address] (12-18-2011 14:10) _TC complet 012 Level ed [...] complet 012 PERFORM ed 11:52 ED BY: [facility] Labor[facility] 55 complet 012 FOUNDAT ed 11:[address] [place] complet 012 [place], ed 11:52 [place] [address] (663-17 complet 012 [id number]) ed 11:52 MEDICAL complet 012 ed 11:52 DIRECTO R: Chip Booth MD Procedures Procedure DOS Code Location Performer Comment ENDOSC 45.42 CHRIS POLYPECTJeevan BARTH MY OF LG INTEST CLOSED 45.25 CHRIS ENDOSCOPElla Lopez BIOPSY OF LARGE INTESTINE Encounters Encounter Start End Date Code Location Performer Type Date Inpatient KEDAR Maki ([place]) 3 11:12 3 10:25 [facility]
--- OUTSIDE RECORDS SUMMARY | 2017-03-14 17:31 | External Medical Summary Rpt | CCD ---
Author Author , RAE MCBRIDE Address Unknown Phone [email or web address] Care Team Providers Care Trench Trimmer Fine Name Role Phone CHRIS BARTH, Unavailable Unavailable Conner Healy Unavailable Unavailable Adielmscassandra [facility] Purpose Continuity of Care Document - 12-07-2011 through 2016 Problems Code Diagnosis DOS Provider Status [id number] Active [facility] 562.01 Diverticuli [facility] [id number] Chronic [facility] E87.2 ACIDOSIS M54.5 LOW BACK PAIN [...] MO 65 01 1 No 64 -2 MS 90 9- Lo EP 20 20 ng 17 13 er PO 5 WD Ac ER ti ve PA CK ET MS 00 01 2 No OT 00 -2 ON 80 9- Lo IX 84 20 ng [address] 9 Ac 40 ti ve MG TA BL ET FU 00 01 0 No RO 40 -2 SE 96 8- Lo RI 10 20 ng DE 20 13 er 4 40 Ac ti MG ve /4 ML AL MS 00 01 0 No OT 00 -2 [...] 2M ti G/ ve 0. 2M L MS 00 01 6 No OM 64 -2 [...] complet BldC 013 mg/dl ed Glucomt 11:46 r-[facility] Glucose BldC Glucomtr-nc (05-21-2012 06:48) Glucose 178 70-110 complet BldC 013 mg/dl ed Glucomt 06:48 r-[facility] C dif Tox A+B Stl Ql (05-21-2012 00:15) C dif NOT NOT complet Tox A+B 013 DETECTE DETECTE ed Stl Ql 00:15 D Glucose BldC Glucomtr-[facility] (05-20-2012 21:21) Glucose 260 70-110 complet BldC 013 mg/dl ed Glucomt 21:21 r-[facility] Glucose dC Glucomtr-[facility] (05-20-2012 17:01) Glucose 114 70-110 complet BldC 013 mg/dl ed Glucomt 17:01 r-[facility] C-REACTIVE PROTEIN (05-20-2012 13:30) C-REACT Less 0.0-0.9 complet AILIN 013 than ed PROTEIN 13:30 0.2 MG/DL IgA Ser-mCnc (05-20-2012 13:27) IgA 241 81-463 complet Ser-mCn 013 mg/dL ed c 13:27 tTG IgA Ser-aCnc (05-20-2012 13:14) tTG IgA Less () complet 013 than 1 ed Ser-aCn 13:14 U/mL c Glucose dC Glucomtr-mCnh (05-20-2012 12:01) Glucose 314 70-110 High complet BldC 013 mg/dl alert ed Glucomt 12:01 r-[facility] Glucose BldC Glucomtr-mCnh (05-20-2012 06:39) Glucose 167 70-110 complet BldC 013 mg/dl ed Glucomt 06:39 r-[facility] COMPREHENSIVE METABOLIC PANEL (05-20-2012 06:20) Glucose [...] mg/dL 1 ed SerPl-m 05:30 Cnc Glucose [facility] Glucomtr-[facility] (05-17-2012 20:33) Glucose 112 70-110 complet BldC 013 mg/dl ed [facility] (05-17-2012 17:02) Glucose 120 70-110 complet BldC 013 mg/dl ed Glucomt 17:02 r-[facility] URINALYSIS/COMPLETE (05-17-2012 15:57) URINE YELLOW YELLOW [...] #/hpf ed S CELLS 15:57 Glucose dC Glucomtr-[facility] (05-17-2012 12:32) Glucose 188 70-110 complet BldC 013 mg/dl ed Glucomt 12:32 r-[facility] COMPREHENSIVE METABOLIC PANEL (05-17-2012 12:00) Glucose [...] E ed IGG 12:00 [place] [address] (12-18-2011 14:10) _TC complet 012 Level ed [...] complet 012 PERFORM ed 11:52 ED BY: [facility] l Laborat ory 55 complet 012 FOUNDAT ed 11:[address] [place] complet 012 [place], ed 11:52 [place] [address] (474-26 complet 012 [id number]) ed 11:52 MEDICAL complet 012 ed 11:52 DIRECTO R: Chip Booth MD Procedures Procedure DOS Code Location Performer Comment ENDOSC 45.42 CHRIS POLYPECTJeevan BARTH MY OF LG INTEST CLOSED 45.25 CHRIS ENDOSCOPElla Lopez BIOPSY OF LARGE INTESTINE Encounters Encounter Start End Date Code Location Performer Type Date Inpatient KEDAR Maki ([place] 3 11:12 3 10:25 [facility]
--- OUTSIDE RECORDS SUMMARY | 2017-03-14 17:32 | External Medical Summary Rpt | CCD ---
Demographics Preferred Language Kittitian Marital Status Unknown Mandaeism Affiliation Unknown Race Unknown Ethnic Group Unknown Author Author , RAE MCBRIDE Address Unknown Phone Immunization Unable to retrieve immunization data due to connection failure with Immunization Registry. Please try again later.
--- OUTSIDE RECORDS SUMMARY | 2017-03-14 17:32 | External Medical Summary Rpt | CCD ---
Demographics Preferred Language Citizen Of [place] Marital Status Unknown Mandaeism Affiliation Unknown Race Unknown Ethnic Group Unknown Author Author , RAE MCBRIDE Address Unknown Phone Immunization Unable to retrieve immunization data due to connection failure with Immunization Registry. Please try again later.
--- OUTSIDE RECORDS SUMMARY | 2017-03-14 17:33 | External Medical Summary Rpt ---
Author Author [employer] Hannah, [employer] Organization [employer] Address Unknown Phone Unavailable Results Gas panel in Arterial blood Observa Value Referen Units Interpr Notes Date tion ce etation Range Base -2.4-+2.3 MMOL/L High No Mar 14 excess in informati 2017 4:45 Arterial on in PM blood source data Arteria ACCEPTA No No No No Mar 14 l BLE informa informa informa informa 2017 patency tion in tion in tion in tion in 4:45 PM Wrist source source source source artery data data data data --pre arteria l punctur e Bicarbona 22.0 - MMOL/L High No Mar 14 te 26.0 informati 2016 4:45 [Moles/vo on in PM lume] in source Arterial data blood Oxygen No No No No Mar 14 content informati informati informati informati 2017 4:45 in on in on in on in on in PM Arterial source source source source blood data data data data Carbon 35.0 - MMHG High Mar 14 dioxide 45.0 2017 4:45 [Partial CRITICAL PM pressure] RESULTS in Arterial RESU blood LTS CALLED TO: ROCHELLE LONGO 03/14/17 1652 Carmel,Anastasia melinda pH of 7.35 - MMOL/L Low No Mar 14 Arterial 7.45 informati 2017 4:45 blood on in PM source data Oxygen 80 - 100 MMHG Low No Mar 14 [Partial informati 2017 4:45 pressure] on in PM in source Arterial data blood Oxygen 90 - 100 % Normal No Mar 14 saturatio informati 2017 4:45 n.calcula on in PM cordell from source oxygen data partial pressure in Arterial blood SOURCE LEFT No No No No Mar 14 RADIAL informa informa informa informa 2017 tion in tion in tion in tion in 4:45 PM source source source source data data data data Carbon 23 - 27 MMOL/L High No Mar 14 dioxide, informati 2016 4:45 total on in PM [Moles/vo source lume] in data Arterial blood CBC W Auto Differential panel in Blood Observa Value Referen Units Interpr Notes Date tion ce etation Range Basophils 0 - 0.2 K/MM3 Normal No Mar 14 inform2016 4:15 [#/volume on in PM ] in source Blood by data Automated count Basophils 0.1 - 2.0 % Normal No Mar 14 / informati 2016 4:15 leukocyte on in PM s in source Blood by data Automated count Eosinophi 0.0 - 0.4 K/mm3 Normal No Mar 14 ls informati 2016 4:15 [#/volume on in PM ] in source Blood by data Automated count Eosinophi 0.1 - % Normal No Mar 14 ls/100 12.0 informati 2016 4:15 leukocyte on in PM s in source Blood by data Automated count Granulocy 1.8 - 7.8 K/mm3 Normal No Mar 14 sinan informati 2016 4:15 [#/volume on in PM ] in source Blood by data Automated count Granulocy 37.0 - % Normal No Mar 14 sinan/100 80.0 informati 2016 4:15 leukocyte on in PM s in source Blood by data Automated count Hematocri 37.0 - % Low Mar 14 t [Volume 47.0 informati 2016 4:15 on in PM Fraction] source of Blood data Hemoglobi 12.2 - g/dL Low Mar 14 n 16.2 informati 2016 4:15 [Mass/vol on in PM ume] in source Blood data Lymphocyt 0.7 - 4.5 K/mm3 Normal Mar 14 es informati 2016 4:15 [#/volume on in PM ] in source Unspecifi data ed specimen by Automated count Lymphocyt 10 - 50.0 % Normal Mar 14 es informati 2016 4:15 [#/volume on in PM ] in source Unspecifi data ed specimen by Automated count Erythrocy 27 - 31.2 pg Low Mar 14 te mean ati 2016 4:15 corpuscul on in PM ar source hemoglobi data n [Entitic mass] Erythrocy 31.8 - g/dl Low Mar 14 te mean 35.4 informati 2016 4:15 corpuscul on in PM ar source hemoglobi data n concentra tion [Mass/vol ume] by Automated count Erythrocy 82.2 - fl Normal Mar 14 te mean 97.8 informati 2016 4:15 corpuscul on in PM ar volume source [Entitic data volume] by Automated count Monocytes 0.1 - 1.0 K/mm3 Normal No Mar 14 informati 2017 4:15 [#/volume on in PM ] in source Blood by data Automated count Monocytes 1.7 - 9.3 % Normal Mar 14 /100 informati 2016 4:15 leukocyte on in PM s in source Blood by data Automated count Platelet 7.4 - fl Normal Mar 14 mean 10.4 informati 2017 4:15 volume on in PM [Entitic source volume] data in Blood by Automated count Platelets 142 - 424 K/mm3 No Mar 14 informati informati 2017 4:15 [#/volume on in on in PM ] in source source Blood data data Erythrocy 4.2 - 5.4 M/mm3 Low No Mar 14 sinan informati 2016 4:15 [#/volume on in PM ] in source Amniotic data fluid Erythrocy 11.5 - % High Mar 14 te 17.5 informati 2016 4:15 distribut on in PM ion width source [Entitic data volume] by Automated count Leukocyte 4.8 - K/MM3 Normal Mar 14 s 10.8 informati 2016 4:15 [#/volume on in PM ] in source Blood data Comprehensive metabolic 2000 panel in Serum or Plasma Observa Value Referen Units Interpr Notes Date tion ce etation Range Albumin/G 1.1 - 1.8 No Low Mar 14 lobulin informati informati 2016 4:15 [Mass on in on in PM ratio] in source source Serum or data data Plasma Albumin 3.4 - 5.0 gm/dL Low Mar 14 [Mass/vol informati 2017 4:15 ume] in on in PM Serum or source Plasma data Alkaline 46 - 116 U/L Normal Mar 14 phosphata informati 2016 4:15 se on in PM [Enzymati source c data activity/ volume] in Serum or Plasma Bilirubin 0.2 - 1.0 mg/dL Normal Mar 14 .total informati 2017 4:15 [Mass/vol on in PM ume] in source Serum or data Plasma Urea 7 - 18 mg/dL Normal Mar 14 nitrogen informati 2016 4:15 [Mass/vol on in PM ume] in source Serum or data Plasma Calcium 8.5 - mg/dL Normal No Mar 14 [Mass/vol 10.1 informati 2016 4:15 ume] in on in PM Serum or source Plasma data Chloride 98 - 107 mmoL/L Low No Mar 14 [Moles/vo informati 2016 4:15 lume] in on in PM Serum or source Plasma data Carbon 21.0 - mmoL/L High Mar 14 dioxide, 32.0 alert NOTIFICAT 2017 4:15 total ION PM [Moles/vo RESULT lume] in Serum or Plasma Creatinin 0.55 - mg/dL Normal No Mar 14 e 1.02 informati 2016 4:15 [Mass/vol on in PM ume] in source Serum or data Plasma Creatinin 50 - 200 ML/MIN Normal No Mar 14 e renal informati 2016 4:15 clearance on in PM source predicted data by Cockcroft -Gault formula Estimated 59- ML/MIN No REFERENCE Mar 14 informati RANGE: 2017 4:15 glomerula on in >60 PM r source ML/MIN/1. filtratio data 73 SQUARE n rate METERSIf (GF this patient is -A merican, then multiply theresult by 1.210. Globulin 1.3 - 3.2 gm/dL High No Mar 14 [Mass/vol informati 2016 4:15 ume] in on in PM Serum source data Glucose 74 - 106 mg/dL High Mar 14 [Mass/vol informati 2016 4:15 ume] in on in PM Serum or source Plasma data Potassium 3.5 - 5.1 mmoL/L Normal No Mar 14 informati 2016 4:15 [Moles/vo on in PM lume] in source Serum or data Plasma Sodium 136 - 145 mmoL/L Normal No Mar 14 [Moles/vo informati 2016 4:15 lume] in on in PM Serum or source Plasma data Aspartate 15 - 37 U/L Normal Mar 14 informati 2016 4:15 aminotran on in PM sferase source [Enzymati data c activity/ volume] in Serum or Plasma Alanine 12 - 78 U/L Normal Mar 14 aminotran informati 2016 4:15 sferase on in PM [Enzymati source c data activity/ volume] in Serum or Plasma Protein 6.4 - 8.2 gm/dL Normal Mar 14 [Mass/vol informati 2016 4:15 ume] in on in PM Serum or source Plasma data Troponin I.cardiac [Mass/volume] in Serum or Plasma Observa Value Referen Units Interpr Notes etation Range Troponin 0.00 - ng/mL Normal No Mar 14 I.cardiac 0.06 inform2016 4:15 on in PM [Mass/vol source ume] in data Serum or Plasma Glucose [Mass/volume] in Serum or Plasma Observa Value Referen Units Interpr Notes etation Range Glucose 74 - 106 mg/dL High Oct 05 [Mass/vol alert 2016 5:10 ume] in CRITICAL PM Serum or RESULTS Plasma RESU LTS CALLED TO: CARLY 10/05/16 1735 Fred,[place] Glucose [Mass/volume] in Serum or Plasma Observa Value Referen Units Interpr Notes etation Range Glucose 74 - 106 mg/dL High Oct 05 [Mass/vol alert 2016 ume] in CRITICAL 12:10 PM Serum or RESULTS Plasma RESU LTS CALLED TO: 10/05/16 1257 Ela Munoz Glucose [Mass/volume] in Capillary blood by Glucometer Observa Value Referen Units Interpr Notes etation Range Glucose 70 - 110 mg/dl High No Oct 05 [Mass/vol alert informati 2016 ume] in on in 12:04 PM Capillary source blood by data Glucomete r Glucose [Mass/volume] in Capillary blood by Glucometer Observa Value Referen Units Interpr Notes etation Range Glucose 70 - 110 mg/dl High No Oct 05 [Mass/vol alert informati 2016 6:13 ume] in on in AM Capillary source blood by data Glucomete r CBC W Auto Differential panel in Blood Observa Value Referen Units Interpr Notes Date etation Range Basophils 0 - 0.2 K/MM3 Normal No Oct 05 inform2016 6:00 [#/volume on in AM ] [...] count Eosinophi 0.1 - % Normal No Vipin 15 ls/100 12.0 informati 2016 6:00 leukocyte [...] K/mm3 Normal No Sep 15 es informati 2016 6:00 [#/volume on in AM ] in source Unspecifi data ed specimen by Automated count Lymphocyt 10 - 50.0 % Low No Sep 15 es informati 2017 6:00 [#/volume on in AM ] in source Unspecifi data ed specimen by Automated count Erythrocy 27 - 31.2 pg Low No Sep 15 te mean informati 2017 6:00 corpuscul on in AM ar source hemoglobi data n [Entitic mass] Erythrocy 31.8 - g/dl Low No Sep 15 te mean 35.4 informati 2016 6:00 corpuscul on in AM ar source hemoglobi data n concentra tion [Mass/vol ume] by Automated count Erythrocy 82.2 - fl Normal No Sep 15 te mean 97.8 informati 2016 6:00 corpuscul on in AM ar volume source [Entitic data volume] by Automated count Monocytes 0.1 - 1.0 K/mm3 Normal No Vipin 15 informati 2017 6:00 [#/volume on in AM ] in source Blood by data Automated count Monocytes 1.7 - 9.3 % Normal No Sep 15 /100 informati 2016 6:00 leukocyte on [...] K/MM3 Normal No Sep 15 s 10.8 informati 2016 6:00 [#/volume on in AM [...] Monocytes 2 - 9 % Normal No Sep 15 /100 informati 2016 6:00 leukocyte on [...] Bilirubin 0.2 - 1.0 mg/dL Normal No Sep 15 .total informati 2016 6:00 [Mass/vol on in AM ume] in source Serum or data Plasma Urea 7 - 18 mg/dL High No Oct 05 nitrogen informati 2016 6:00 [Mass/vol on in AM ume] in source Serum or data Plasma Calcium 8.5 - mg/dL Normal No Sep 15 [Mass/vol 10.1 informati 2017 6:00 ume] in on in [...] High No Sep 15 e 1.02 informati 2017 6:00 [Mass/vol on in AM [...] No Oct 02 a informa informa informa 2017 [Presen tion in [...] No No Oct 02 E informa informa 2017 [Presen tion in tion [...] No Oct 02 E informa informa informa 2017 [Presen tion in tion in tion in 6:00 PM ce] in source source source Urine data data data by Test strip pH of 5.0 - 8.5 No Normal No Oct 02 Urine informati informati 2017 6:00 on in on in PM source source data data Protein NEG mg/dL High No Oct 02 [Mass/vol informati 2017 6:00 ume] in on [...] No No Oct 02 s informati informati 2016 6:00 [#/volume on in on in PM [...] etation Range Base -2.4-+2.3 MMOL/L High No Sep 12 excess in informati 2017 5:27 Arterial on in PM blood source data Arteria ACCEPTA No No No No Vipin 12 l BLE informa informa informa informa 2017 patency tion in tion in tion in tion in 5:27 PM Wrist source source source source artery data data data data --pre arteria l punctur e Bicarbona 22.0 - MMOL/L High No Sep 12 te 26.0 informati 2017 5:27 [Moles/vo [...] 90 - 100 % Low alert No Sep 12 saturatio informati 2016 5:27 n.calcula on in [...] Hemoglobi 12.2 - g/dL Low No Sep 12 n 16.2 informati 2016 5:20 [Mass/vol on in PM ume] in source Blood data Lymphocyt 0.7 - 4.5 K/mm3 Normal No Sep 12 es inform2016 5:20 [#/volume on in PM ] in source Unspecifi data ed specimen by Automated count Lymphocyt 10 - 50.0 % Normal No Sep 12 es inform2016 5:20 [#/volume on in PM ] in source Unspecifi data ed specimen by Automated count Erythrocy 27 - 31.2 pg Low No Sep 12 te mean inform2016 5:20 corpuscul on in [...] Monocytes 0.1 - 1.0 K/mm3 Normal No Sep 12 inform2016 5:20 [#/volume on in PM ] [...] Platelets 142 - 424 K/mm3 Normal No Sep 12 informati 2016 5:20 [#/volume on in PM [...] Adminis tration .[facility] CLIA ID Number [id number] test was perform ed using PCR (Polyme rase ChainRe action) /SSOP (Sequen ce Specifi c Oligonu cleotid e Probes) techniq ue. SBT (Sequen ce Based Typing) and/or SSP(Seq uence Specifi c Primers ) may be used as supplem entalme thods when necessa ry. Please contact [facility] r[facility] e at [phone] if you have any questio ns.Dire ctor of [facility] Laborat oryDr Jos Tran, PhDPerf ormed at: 2Q - [facility] [id number] [place], [place] [id number] 61Lab Directo r: Jos Tran PhD, Phone: [phone] Comprehensive metabolic 2000 panel in Serum or [...] Blood Observa Value Referen Units Interpr Notes ce etation Range Hemoglo 9.1 0.0 - % High < 6% September 08 bin A1c 7.0 NON-ALPHONSE 2016 in BETIC 10:40 Blood LEVEL< AM 7% CONTROL LED DIABETI C LEVEL> 8% [place] [address] Observa Value Referen Units Interpr Notes ce etation Range _TC No No No [...] Observa Value Referen Units Interpr Notes Date ce etation Range Leukocy 9.0 4.60 - [...] No Dec 11 ts 424 informa informa 2011 [#/volu tion in tion [...] No Dec 06 informa mL informa informa 2011 tion in tion in tion in 12:19 source source source PM data data data azepine POS. No 200_ng/ No No Dec 06 s informa mL informa informa 2012 tion in tion in tion in 12:19 source source source PM data data data NEG. No 300_ng/ No No Dec 06 informa mL informa informa 2011 tion in tion in tion in 12:19 [...] data data [facility] *UPON No No [...] source source PM data data data data [facility] No No No No Dec 06 FOUNDAT informa informa informa informa 2012 ION tion in tion in tion in tion in 12:19 DRIVE source source source source PM data data data data [place] No No No No Dec 06 [place], informa informa informa informa 2012 [place] tion in tion in tion in tion in 12:19 [id number] source source source source PM data data data data (606-84 No No No No Dec 06 9-5000) informa informa informa informa 2012 tion in [...]
--- OUTSIDE RECORDS SUMMARY | 2017-03-14 17:33 | External Medical Summary Rpt ---
[...] RESU LTS CALLED TO: CARLY 10/05/16 1735 Fred,[place] n[place] Glucose [Mass/volume] in Serum or Plasma [...] Adminis tration .[facility] CLIA ID Number [id number] test was perform ed using PCR (Polyme rase ChainRe action) /SSOP (Sequen ce Specifi c Oligonu cleotid e Probes) techniq ue. SBT (Sequen ce Based Typing) and/or SSP(Seq uence Specifi c Primers ) may be used as supplem entalme thods when necessa ry. Please contact [facility] at [phone] if you have any questio ns.Dire ctor of [facility] Laborat oryDr Jos Tran, PhDPerf ormed at: 2Q - [facility] [id number] [place], [place] [id number] 61Lab Directo r: Jos Tran PhD, Phone: [phone] Comprehensive metabolic 2000 panel in Serum or [...] [place] [address] Observa Value Referen Units Interpr Notes ce [...] [facility] S[facility] data [facility] *UPON No No No [...] source source PM data data data data [facility] 55 No No No No Dec 06 FOUNDAT informa informa informa informa 2012 ION tion in tion in tion in tion in 12:19 DRIVE source source source source PM data data data data [place] No No No No Dec 06 [place], informa informa informa informa 2012 [place] tion in tion in tion in tion in 12:19 [id number] source source source source PM data data [...]
[2017-03-14 17:35] LABS: URINE BILIRUBIN - DIPSTICK NEGATIVE (NEG); URINE BLOOD TRACE-LYSED (NEG)
--- NOTE | 2017-03-14 18:32 | RADIOLOGY REPORT PS360 ---
CHEST-AP VIEW ONLY HISTORY: Shortness of breath, congestion SOB hx CHF ORDERING PHYSICIAN: Yohana Hand MD PATIENT AGE: 66 years COMPARISON: 10/02/2016 FINDINGS: There is cardiomegaly with mild pulmonary venous congestion consistent with mild CHF. Study is underpenetrated. . Lung bases are poorly demonstrated. Cannot exclude pathology in the lung bases. IMPRESSION: 1. Mild CHF. 2. Underpenetration of the lung bases for which underlying pathology cannot be excluded
[2017-03-14 18:36] VITALS: BP 167/83
[2017-03-14 18:58] VITALS: BP 167/83
[2017-03-14 19:17] LABS: URINE SQUAMOUS CELLS OCC #/hpf (0-5)
--- NOTE | 2017-03-14 20:47 | HISTORY AND PHYSICAL REPORT ---
Demographics: Admit date: 03/14/17 Chief complaint: Dyspnea PRIMARY DIAGNOSIS: RESPIRATORY DISTRESS Allergies: Coded Allergies: Penicillins (Intermediate, SWELLING, HIVES, ITCHING 07/25/16) ibuprofen (Mild, ITCHING, SWELLING, RASH 07/25/16) History of present illness: History of present illness: 66 y/o WF under Hospice care for COPD and diastolic CHF sent from home in [facility] to ER for ? facial droop and SOA with HOOVER. In ER with negative stroke w/u but patient with poor ABG and hypercapnea and placed on biPap. Improved. Admitted to floor for resp toilet, IV steroids. Patient has been on multiple PO and IM abx at home and has developed yeast overgrowth in sputum. Recently finished diflucan course. Patient feels much better tonight now, less Dyspnea. Alert. Past medical history: Family HX Diabetes Yes CAD No Hypertension Yes Hyperlipidemia Yes Cancer Yes TB No Immunization HX DT/Tetanus Unknown Flu Refused Pneumonia Refuses TB Test in last year No General CAD? No Angina: No GA: No Hypertension? Yes Hyperlipidemia? Yes CHF? Yes DVT? No PE? No COPD? Yes Asthma? Yes Anemia? No GERD? Yes Gastric ulcers? No GI Bleed? No Hernia? No Thyroid Problems? No Hypothyroidism? No CVA? No Seizures? No Diabetes? Yes Insulin Dependent: Yes Insulin Pump: No Home FSBS? Yes Renal Insuffiency? No UTI? No Stones? No BPH? No GB Disease: Yes Nephritic Syndrome? No Asplenia? No Hepatitis? No Sickle Cell Disease? No Arthritis? Yes Migraines? No Cataracts? No Glaucoma? No MRSA? No HIV? No TB? No Anxiety? Yes Depression? No Cancer? Yes Site: CERVICAL More? 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 Past Surgical HX Previous Surgery?Y HYSTERECTOMY Cholecystectomy GB REMOVAL Current home meds: Active Scripts Furosemide (Lasix 40MG) 40 MG PO BIDL #60 TAB Ref 1 Prov: 10/05/16 Reported Medications Gabapentin (Gabapentin 800MG) 800 MG PO BID Esomeprazole Magnesium (Nexium 40MG Cap) 40 MG PO DAILY #30 CAP DILTIAZEM HCL (Cartia Xt) 240 MG PO BID Fluticasone Propionate (Flonase 50 Mcg Nasal Valentines) 2 SPRAY NA BID Atorvastatin Calcium (Atorvastatin) 40 MG PO DAILY Tiotropium [place] (Spiriva) 1 PUFF IH DAILY Insulin Lispro (Humalog Kwikpen) 30 UNIT SQ TID INSULIN GLARGINE,HUM.REC.ANLOG (Toujeo Solostar) 100 UNITS SC DAILY POTASSIUM CHL (Potassium Chloride) 20 MEQ PO BIDP PRN SUPPLEMENT Methotrexate 2.5 MG PO WEEKLY FOLIC ACID (Folic Acid) 1 MG PO DAILY Spironolactone (Aldactone) 25 MG PO DAILY Prochlorperazine Maleate (Compazine) 10 MG PO PRN PRN NAUSEA FLUTICASONE/VILANTEROL (Breo Ellipta 100-25 Mcg INH) 1 PUFF IH DAILY Levothyroxine Sodium (Synthroid 0.025MG) 0.025 MG PO DAILY Alprazolam (Xanax 1MG) 1 MG PO BID ALBUTEROL (Proventil Hfa Inhaler) 2 PUFF IH Q4H Device (Oxygen Concentrator (Portable)) 1 UNIT IH CONSTANT #1 IPRATROPIUM/ALBUTEROL SULFATE (Iprat-Albut 0.5-3(2.5) MG/3 Ml) 3 ML IH QID Social Hx: Smoking HX Tobacco No Packs/day N/A Are you/the child exposed to second-hand smoke: No Alcohol Alcohol: No Hx of Drug Use Drug Use? No Patien't marital status is Patient's support system is good (from Hospice and daughter) Review of systems: Constitutional malaise, weakness. No: fever. Respiratory shortness of breath, SOB with excertion, SOB at rest, wheezing. Cardiovascular No chest pain, edema Gastrointestinal/Abdominal nausea, poor appetite, poor fluid intake Genitourinary No: no symptoms reported. Musculoskeletal back pain. Neurological Yes: tremors, weakness. Exam: Lab data for last 24 hours: Laboratory Tests 03/14/17 1700: Urine Color YELLOW, Urine Appearance CLEAR, Urine pH 6.0, Ur Specific [place] 1.025, Urine Protein 2+ H, Urine Ketones NEGATIVE, Urine Blood TRACE-LYSED, Urine Nitrate NEGATIVE, Urine Bilirubin NEGATIVE, Urine Urobilinogen 0.2, Ur Leukocyte Esterase NEGATIVE, Urine RBC NONE, Urine WBC OCC, Ur Squamous Epith Cells OCC, Urine Bacteria NONE, Hyaline Casts 5-10, Urine Glucose NEGATIVE 03/14/17 1645: ABG pH 7.29 L, ABG pCO2 (Temp Corrct 83.6 H, ABG pO2 (Temp Correct 75.5 L, ABG HCO3 39.6 H, ABG Total CO2 42.1 H, ABG O2 Sat (Calculated) 93.5, ABG Base Excess 13.0 H, Junior Test ACCEPTABLE, Blood Gas Comments LEFT RADIAL 03/14/17 161: Sodium 141, Potassium 3.9, Chloride 97 L, Carbon Dioxide 43 *H, BUN 7, Creatinine 0.9, Estimated Creat Clear 97, Estimated GFR (MDRD) 63, Glucose 194 H, Calcium 8.8, Total Bilirubin 0.3, AST 24, ALT 22, Alkaline Phosphatase 80, Troponin I 0.04, Total Protein 7.3, Albumin 3.2 L, Globulin 4.1 H, Albumin/ Globulin Ratio 0.8 L, WBC 6.3, RBC 3.39 L, Hgb 8.8 L, Hct 29.6 L, MCV 87.5, RDW 17.8 H, Plt Count 229, MPV 7.6, Gran % 79.3, Gran # 5.0, Lymphocytes % 14.3 , Monocytes % 3.7, Eosinophils % 2.4, Basophils % 0.3, Lymphocytes # 0.9, Monocytes # 0.2, Eosinophils # 0.2, Basophils # 0.0, PUBS MCHC 29.7 L, MCH 26.0 L Microbiology 03/14 161 BLOOD: Anaerobic Blood Culture - RECD 03/14 1615 BLOOD: Aerobic Blood Culture - RECD 03/14 1615 BLOOD: Anaerobic Blood Culture - RECD 03/14 1615 BLOOD: Aerobic Blood Culture - RECD Admission vital signs: 1ST Vital Signs Result Date Time Pulse Ox 100 03/14 153 B/P 161/80 03/14 153 O2 Flow Rate 4 03/14 153 Temp 98.0 03/14 153 Pulse 107 03/14 153 Resp 20 03/14 153 O2 Delivery OXYGEN 03/14 183 Exam General appearance: alert Eyes: anicteric ENT: mucous membranes moist Neck: no JVD Cardiovascular: normal sinus rhythm, murmur (holosystolic) Respiratory: rhonchi, wheezing, accessory muscle use, dullness to percussion ABD: normal exam (morbidly obese), soft, bowel sounds present Genitourinary: catheter in place Extremities: edema Neuro: alert Plan: Problem List 1. CO2 narcosis 2. Respiratory acidosis 3. Diastolic heart failure 4. COPD (chronic obstructive pulmonary disease) 5. Respiratory distress Plan: Plan will be to admit to H. BiPap as needed for narcosis. Solumedrol IV - transition to PO steroids in 48 hours. No antibiotics given recent exposures and lack of evidence of infection at this point. Respect DNR status. Patient is interested in transitioning to LTC. at 2044
[2017-03-14 21:05] VITALS: BP 167/83
[2017-03-14] MEDS ORDERED: IBUPROFEN800 MG PO (21:28)
[2017-03-14 22:02] LABS: ARTERIAL PO2 76.2 MMHG (80-100)
[2017-03-14 22:03] LABS: ALLEN'S TEST ACCEPTABLE; ARTERIAL ABE 16.7 MMOL/L (-2.4-+2.3); ARTERIAL TCO2 43.8 MMOL/L (23-27); OXYGEN BIPAP 18/8; PRESSURE SUPPORT 10; VENT RATE 18
[2017-03-15 04:30] VITALS: BP 158/72
[2017-03-15 05:44] LABS: HEMOGLOBIN 8.3 g/dL (12.2-16.2); LYMPH # 0.5 K/mm3 (0.7-4.5); LYMPH % 9.3 % (10-50.0)
[2017-03-15 06:24] LABS: NEUTROPHILS 94 % (42-76); STOMATOCYTE 1+
--- NOTE | 2017-03-15 07:12 | ACUTE CARE PROGRESS NOTE (QUA) ---
Progress Notes Subjective Date 03/15/17 Time 0710 Note Patient admits she is feeling better this morning than on admission. She was able to rest comfortably with use of nasal cannula oxygen. Her only complaint is hearing loss. She is in no respiratory distress. Tympanic membranes are translucent with no effusions bilaterally. Oropharynx is moist. Lungs have fair aeration and patient 's inspiratory effort is poor. Heart has a regular rate and rhythm. Continue steroids for chronic obstructive pulmonary disease exacerbation. Out of bed to chair today Objective Findings Last VS-Temp:97.6 B/P:158/72 Pulse:84 Resp:20 SaO2:94 OXYGEN Last weight lbs:233 oz:2 K.744 Method:Bed Scales Laboratory Tests 03/15/17 0630: POC Glucose 355 *H 03/15/17 0510: Sodium 140, Potassium 4.3, Chloride 96 L, Carbon Dioxide 45 *H, BUN 14, Creatinine 1.1 H, Estimated Creat Clear 84, Estimated GFR (MDRD) 50 L, Glucose 375 H, Calcium 8.9, WBC 4.9, RBC 3.25 L, Hgb 8.3 L, Hct 28.5 L, MCV 87.5, RDW 17.7 H, Plt Count 263, MPV 7.6, Gran % 87.4 H, Gran # 4.3, Total Counted 100, Lymphocytes % 9.3 L, Monocytes % 3.0, Eosinophils % 0.3, Basophils % 0.0 L, Neutrophils 94 H, Lymphocytes (Manual) 6 L, Lymphocytes # 0.5 L, Monocytes # 0.1, Eosinophils # 0.0, Basophils # 0.0, Platelet Estimate NORMAL, Hypochromasia 1+, Anisocytosis 1+, Stomatocytes 1+, PUBS MCHC 29.2 L, MCH 25.5 L 03/14/170: ABG pH 7.39, ABG pCO2 (Temp Corrct 70.1 H, ABG pO2 (Temp Correct 76.2 L, ABG HCO3 41.7 H, ABG Total CO2 43.8 H, ABG O2 Sat (Calculated) 95, ABG Base Excess 16.7 H, Junior Test ACCEPTABLE, Vent Rate 18, Pressure Support 10, Blood Gas Comments LEFT RADIAL 03/14/172057: POC Glucose 393 *H 03/14/17 1700: Urine Color YELLOW, Urine Appearance CLEAR, Urine pH 6.0, Ur Specific [place] 1.025, Urine Protein 2+ H, Urine Ketones NEGATIVE, Urine Blood TRACE-LYSED, Urine Nitrate NEGATIVE, Urine Bilirubin NEGATIVE, Urine Urobilinogen 0.2, Ur Leukocyte Esterase NEGATIVE, Urine RBC NONE, Urine WBC OCC, Ur Squamous Epith Cells OCC, Urine Bacteria NONE, Hyaline Casts 5-10, Urine Glucose NEGATIVE 03/14/17 1645: ABG pH 7.29 L, ABG pCO2 (Temp Corrct 83.6 H, ABG pO2 (Temp Correct 75.5 L, ABG HCO3 39.6 H, ABG Total CO2 42.1 H, ABG O2 Sat (Calculated) 93.5, ABG Base Excess 13.0 H, Junior Test ACCEPTABLE, Blood Gas Comments LEFT RADIAL 03/14/171614: Sodium 141, Potassium 3.9, Chloride 97 L, Carbon Dioxide 43 *H, BUN 7, Creatinine 0.9, Estimated Creat Clear 97, Estimated GFR (MDRD) 63, Glucose 194 H, Calcium 8.8, Total Bilirubin 0.3, AST 24, ALT 22, Alkaline Phosphatase 80, Troponin I 0.04, Total Protein 7.3, Albumin 3.2 L, Globulin 4.1 H, Albumin/ Globulin Ratio 0.8 L, WBC 6.3, RBC 3.39 L, Hgb 8.8 L, Hct 29.6 L, MCV 87.5, RDW 17.8 H, Plt Count 229, MPV 7.6, Gran % 79.3, Gran # 5.0, Lymphocytes % 14.3 , Monocytes % 3.7, Eosinophils % 2.4, Basophils % 0.3, Lymphocytes # 0.9, Monocytes # 0.2, Eosinophils # 0.2, Basophils # 0.0, PUBS MCHC 29.7 L, MCH 26.0 L Microbiology 03/14 1615 BLOOD: Anaerobic Blood Culture - RECD 03/14 1615 BLOOD: Aerobic Blood Culture - RECD 03/14 1615 BLOOD: Anaerobic Blood Culture - RECD 03/14 1615 BLOOD: Aerobic Blood Culture - RECD Assessment/Plan Problem List 1. CO2 narcosis 2. Respiratory acidosis 3. Diastolic heart failure 4. COPD (chronic obstructive pulmonary disease) 5. Respiratory distress Patient condition Stable This inpt stay is expected to cross 2 MNs from start of care Yes at 0712
[2017-03-15 08:23] VITALS: BP 142/63
--- NOTE | 2017-03-15 08:55 | PHARMACY CLINIC NOTE ---
Patient Demographics Patient Demographics Admission date: 03/14/17 Date: 03/15/17 Time: 0855 Allergies Coded Allergies: Penicillins (Intermediate, SWELLING, HIVES, ITCHING 07/25/16) HEIGHT- FT: 5 IN: 5.00 K.744 VTE General Information Labs: Laboratory Tests 03/15 03/14 0510 1615 Hematology Hgb (12.2 - 16.2 g/dL) 8.3 L 8.8 L Hct (37.0 - 47.0 %) 28.5 L 29.6 L Plt Count (142 - 424 K/mm3) 263 229 Disclaimer The following section includes nursing documentation that has been pulled in for pharmacy review. Patient's VTE score: 4 Patient's VTE Risk: LOW RISK Clinical trial participant? No VTE prophylaxis [id number] VTE prophylaxis ordered? Yes Type of prophylaxis/treatment: BRUCE at 0855
[2017-03-15 09:18] VITALS: BP 142/63
[2017-03-15 16:06] VITALS: BP 117/47
[2017-03-15 20:15] VITALS: BP 150/66
[2017-03-16 05:31] VITALS: BP 154/70
[2017-03-16 08:00] VITALS: BP 126/50
--- NOTE | 2017-03-16 08:35 | ACUTE CARE PROGRESS NOTE (QUA) ---
Progress Notes Subjective Date 03/16/17 Time 0834 Note Patient is much more active and alert and talkative. She states that she was able to spend 2 hours on BiPAP last night because "I fight it all night long." Lung graves are clear with diminished air movement but improved over admission exam. Heart rate regular. Mental status has improved. I reviewed blood gases showing nice improvement in CO2 and pH levels. Objective Findings Last VS-Temp:97.6 B/P:154/70 Pulse:70 Resp:18 SaO2:94 OXYGEN Last weight lbs:229 oz:4 K.986 Method:Bed Scales Assessment/Plan Problem List 1. CO2 narcosis 2. Respiratory acidosis 3. Diastolic heart failure 4. COPD (chronic obstructive pulmonary disease) 5. Respiratory distress Patient condition Improving Plan: continue current care, continue therapy. We will investigate detention transfer on Sunday, this will necessitate some insurance issues. We'll continue supportive care and BiPAP at night. This inpt stay is expected to cross 2 MNs from start of care Yes at 0835
--- NOTE | 2017-03-16 08:35 | ACUTE CARE PROGRESS NOTE (QUA) ---
Progress Notes Subjective Date 03/16/17 Time 0834 Note Patient is much more active and alert and talkative. She states that she was able to spend 2 hours on BiPAP last night because "I fight it all night long." Lung graves are clear with diminished air movement but improved over admission exam. Heart rate regular. Mental status has improved. I reviewed blood gases showing nice improvement in CO2 and pH levels. Objective Findings Last VS-Temp:97.6 B/P:154/70 Pulse:70 Resp:18 SaO2:94 OXYGEN Last weight lbs:229 oz:4 K.986 Method:Bed Scales Assessment/Plan Problem List 1. CO2 narcosis 2. Respiratory acidosis 3. Diastolic heart failure 4. COPD (chronic obstructive pulmonary disease) 5. Respiratory distress Patient condition Improving Plan: continue current care, continue therapy. We will investigate residential transfer on Sunday, this will necessitate some insurance issues. We'll continue supportive care and BiPAP at night. This inpt stay is expected to cross 2 MNs from start of care Yes at 0835
[2017-03-16 16:00] VITALS: BP 126/59
[2017-03-16 20:00] VITALS: BP 123/56
[2017-03-16 21:50] VITALS: BP 123/56
[2017-03-17 03:32] VITALS: BP 142/69
--- NOTE | 2017-03-17 08:02 | ACUTE CARE PROGRESS NOTE (QUA) ---
Progress Notes Subjective Date 03/17/17 Time 0801 Patient/family reports: feeling better, cough, shortness of breath Objective Findings Last VS-Temp:98.3 B/P:142/69 Pulse:69 Resp:24 SaO2:93 OXYGEN Last weight lbs:225 oz:0 K.058 Method:Bed Scales Exam General appearance: awake, no acute distress Cardiovascular: regular rate & rhythm Respiratory: fair aeration, no rhonchi or wheezing Reviewed: medications, vital signs, lab results Assessment/Plan Problem List 1. CO2 narcosis 2. Respiratory acidosis 3. Diastolic heart failure 4. COPD (chronic obstructive pulmonary disease) 5. Respiratory distress Patient condition Stable Plan: continue current care, make medication changes, increase mealtime insulin dose This inpt stay is expected to cross 2 MNs from start of care Yes at 0802
[2017-03-17 08:22] VITALS: BP 137/63
[2017-03-17 16:17] VITALS: BP 118/42
[2017-03-17 20:00] VITALS: BP 140/55
[2017-03-18 04:00] VITALS: BP 111/45
--- NOTE | 2017-03-18 07:11 | ACUTE CARE PROGRESS NOTE (QUA) ---
Progress Notes Subjective Date 03/18/17 Time 0709 Note Patient tells me she had a "rough day" yesterday and about "went down on them" while trying to wash her face. Patient became very winded and weak while bathing. She didn't sleep well through the night. She appears comfortable. Lungs have fair aeration with a faint end expiratory wheeze in the LEFT chest this morning. Heart has a regular rate and rhythm. Abdomen is obese and soft. I will decrease steroids again today. Encouraged patient to try to increase her activity level Objective Findings Last VS-Temp:98.2 B/P:111/45 Pulse:63 Resp:22 SaO2:93 OXYGEN Last weight lbs:224 oz:9 K.86 Method:Bed Scales Laboratory Tests 03/18/17 0611: POC Glucose 303 *H 03/17/17 2055: POC Glucose 341 *H 03/17/17 1638: POC Glucose 410 *H 03/17/17 1137: POC Glucose 471 *H Assessment/Plan Problem List 1. CO2 narcosis 2. Respiratory acidosis 3. Diastolic heart failure 4. COPD (chronic obstructive pulmonary disease) 5. Respiratory distress 6. Diabetes mellitus Patient condition Improving Plan: continue current care, make medication changes (decrease steroids) This inpt stay is expected to cross 2 MNs from start of care Yes at 0710
[2017-03-18 08:18] VITALS: BP 167/75
[2017-03-18 16:09] VITALS: BP 127/60
[2017-03-18 20:08] VITALS: BP 118/49
[2017-03-18 21:30] VITALS: BP 118/49
[2017-03-19 03:46] VITALS: BP 113/47
[2017-03-19 08:00] VITALS: BP 158/72
--- NOTE | 2017-03-19 08:26 | DISCHARGE SUMMARY STANDARD ---
Demographics Admit date: 03/14/17 Discharge date: 03/19/17 History of present illness History of present illness 66 y/o WF under Hospice care for COPD and diastolic CHF sent from home in [facility] to ER for ? facial droop and SOA with HOOVER. In ER with negative stroke w/u but patient with poor ABG and hypercapnea and placed on biPap. Improved. Admitted to floor for resp toilet, IV steroids. Patient has been on multiple PO and IM abx at home and has developed yeast overgrowth in sputum. Recently finished diflucan course. Patient feels much better tonight now, less Dyspnea. Alert. Hospital Course Hospital Course: Patient was admitted as above, diuresis with IV Lasix and responded very nicely to this. Treated with BiPAP during the initial hours of her hospital stay and through the nocturnal hours. This improved her ABG and her respiratory issues and her mental status. She improved nicely. Ambulation remains very difficult. Continues to be dyspneic at rest but mental status has improved. This morning she is alert, able to go to the restroom under her own power. Lungs have poor air movement consistent with her pickwickian syndrome, and her morbid obesity limits the accuracy of her exam and complicates all aspects of her care. Her heart rate is regular. She has much less edema and is able to wear BRUCE hose. Plan will be to transfer her to [facility] for ongoing palliative care, she will continue to receive hospice services and continue to maintain a DNR status. She will need her BiPAP machine at the retirement and this will be brought from her home. Her medications will be as noted. We will follow her up on her regular retirement rounds. Note that her prognosis is poor for overall improvement. Discharge diagnoses Problem List 1. CO2 narcosis 2. Respiratory acidosis 3. Diastolic heart failure 4. COPD (chronic obstructive pulmonary disease) 5. Respiratory distress 6. Diabetes mellitus Medications Medications: Discharge meds are as noted. Follow up Follow up in office in: 3 DAYS with: Shaun Maki MD at 0842
--- NOTE | 2017-03-19 08:26 | DISCHARGE SUMMARY STANDARD ---
Demographics Admit date: 03/14/17 Discharge date: 03/19/17 History of present illness History of present illness 66 y/o WF under Hospice care for COPD and diastolic CHF sent from home in [facility] to ER for ? facial droop and SOA with HOOVER. In ER with negative stroke w/u but patient with poor ABG and hypercapnea and placed on biPap. Improved. Admitted to floor for resp toilet, IV steroids. Patient has been on multiple PO and IM abx at home and has developed yeast overgrowth in sputum. Recently finished diflucan course. Patient feels much better tonight now, less Dyspnea. Alert. Hospital Course Hospital Course: Patient was admitted as above, diuresis with IV Lasix and responded very nicely to this. Treated with BiPAP during the initial hours of her hospital stay and through the nocturnal hours. This improved her ABG and her respiratory issues and her mental status. She improved nicely. Ambulation remains very difficult. Continues to be dyspneic at rest but mental status has improved. This morning she is alert, able to go to the restroom under her own power. Lungs have poor air movement consistent with her pickwickian syndrome, and her morbid obesity limits the accuracy of her exam and complicates all aspects of her care. Her heart rate is regular. She has much less edema and is able to wear BRUCE hose. Plan will be to transfer her to [facility] for ongoing palliative care, she will continue to receive hospice services and continue to maintain a DNR status. [facility] and this will be brought from her home. Her medications will be as noted. We will follow her up on her regular jail rounds. Note that her prognosis is poor for overall improvement. Discharge diagnoses Problem List 1. CO2 narcosis 2. Respiratory acidosis 3. Diastolic heart failure 4. COPD (chronic obstructive pulmonary disease) 5. Respiratory distress 6. Diabetes mellitus Medications Medications: Discharge meds are as noted. Follow up Follow up in office in: 3 DAYS with: Shaun Maki MD at 0836
[2017-03-19] MEDS ORDERED: XANAX 1MG TABLET1 MG PO (08:28)
[2017-03-19 15:43] VITALS: BP 113/47
== END 2017-03-19 14:00 | disposition hospice, inpatient (51) | DRG 291 ==
LOC: ER 15:35 → 2ND 17:24
PROVIDERS: Emergency Medicine; Internal Medicine Adolescent Medicine
PROC: 5A09457 Assistance with Respiratory Ventilation, 24-96 Consecutive Hours, Continuous Positive Airway Pressure (ICD-10-PCS; principal; 2017-03-14)
DX: I50.30 Unspecified diastolic (congestive) heart failure (principal); J96.01 Acute respiratory failure with hypoxia; E66.2 Morbid (severe) obesity with alveolar hypoventilation; Z68.41 Body mass index [BMI] 40.0-44.9, adult; J44.9 Chronic obstructive pulmonary disease, unspecified; I10 Essential (primary) hypertension; E11.9 Type 2 diabetes mellitus without complications